=== PATIENT | female | born 1950 | race Caucasian/White ===

== ENCOUNTER → 2018-02-25 16:07 | Outpatient (CLI) | payer MEDICARE, SELFPAY ==
[2018-02-28 12:12] LABS: HPV Reflexed? NOT INDICATED
== END ==
PROVIDERS: Visit Provider Obstetrics & Gynecology
DX: Z12.4 Encounter for screening for malignant neoplasm of cervix (principal)
CPT/HCPCS: 88175; G0145

== ENCOUNTER → 2018-05-22 08:24 | Outpatient (CLI) | payer MEDICARE, SELFPAY ==
[2018-05-22 10:19] LABS: Anion Gap 8 (5-15); BUN 13 mg/dL (7-18); BUN/Creat Ratio 15.8 RATIO (10-20); Calcium,Total 9.1 mg/dL (8.5-10.1); Chloride 106 mmol/L (98-107); Creatinine, Serum 0.82 mg/dL (0.55-1.02); EST Glomerular Filtration Rate 74 mL/min (>60); Est Glom Filt Rate - Afr Amer 89 mL/min (>60); Glucose 115 mg/dL (74-106); Potassium 4.2 mmol/L (3.5-5.1); Sodium Level 142 mmol/L (136-145)
[2018-05-22 10:26] LABS: Hemoglobin A1c 6.5 % (4.2-6.3)
== END ==
PROVIDERS: Family Provider Family Medicine; PCP Family Medicine; Visit Provider Family Medicine
DX: I10 Essential (primary) hypertension (principal); R73.09 Other abnormal glucose
CPT/HCPCS: 36415; 80048; 83036

== ENCOUNTER → 2019-05-05 07:39 | Outpatient (CLI) | payer MEDICARE, SELFPAY ==
--- NOTE | 2019-05-05 07:51 | RAD_ITS ---
STUDY: X-RAY - RIGHT KNEE REASON FOR EXAM: Female, 68 years old. Palpable nodule. TECHNIQUE: 4 view(s) of the knee. COMPARISON: None. FINDINGS: Normal visualized distal femur. Normal visualized proximal tibia and fibula. Normal proximal tibiofibular articulation. There is mild degenerative arthrosis of the medial femorotibial compartment. Normal lateral femorotibial compartment. There is mild degenerative arthrosis of the patellofemoral articulation. The soft tissue structures are unremarkable. RAD/Knee 4 or More Views IMPRESSION: Degenerative arthrosis. Electronically Signed: Pete Grajeda, at 9:46 EDT , Service support ,
== END ==
PROVIDERS: Family Provider Family Medicine; PCP Family Medicine; Referring Provider Family Medicine; Visit Provider Family Medicine
DX: M70.51 Other bursitis of knee, right knee (principal)
CPT/HCPCS: 73564

== ENCOUNTER → 2019-05-11 09:19 | Outpatient (CLI) | payer MEDICARE, SELFPAY ==
[2019-05-11 12:17] LABS: Absolute Lymphocyte Count 1.52 X10^3/uL (0.83-4.51); Absolute Neutrophil Count 3.8 X10^3/uL (2.0-7.7); Basophil# 0.05 X10^3/uL; Basophil% 0.8 % (0-1); Eosinophil# 0.37 X10^3/uL; Hematocrit 39.9 % (37-47); Hemoglobin 13.2 g/dL (12.0-15.0); Lymphocyte # 1.52 X10^3/ul (4.0); Lymphocyte % 24.7 % (19-41); Mean Corp Hgb Conc 33.1 g/dL (32-36); Mean Corpuscular Hgb 30.5 pg (27.0-32.0); Mean Corpuscular Volume 92.1 fL (81-99); Mean Platelet Vol. 10.5 fl (6.2-12.0); Monocyte# 0.41 X10^3/uL; Monocyte% 6.7 % (0-10); NRBC Flagged by Analyzer 0 % (0-5); Neutrophil # 3.79 X10^3/uL (2.7-7.7); Neutrophil % 61.5 % (47-70); Platelet Count 244 K/mm3 (150-450); RBC Distribution Width CV 12.7 % (11.6-14.6); RBC Distribution Width SD 42.5 fl (35.1-43.9); Red Blood Count 4.33 M/mm3 (4.2-5.4); White Blood Count 6.2 K/mm3 (4.4-11.0)
[2019-05-11 12:43] LABS: Vitamin D,25 Hydroxy 31.8 ng/mL (29.95-100.01)
[2019-05-11 13:13] LABS: Anion Gap 9 (5-15); BUN 13 mg/dL (7-18); BUN/Creat Ratio 16.3 RATIO (10-20); Calcium,Total 8.9 mg/dL (8.5-10.1); Chloride 109 mmol/L (98-107); EST Glomerular Filtration Rate 77 mL/min (>60); Est Glom Filt Rate - Afr Amer 93 mL/min (>60); Glucose 117 mg/dL (74-106); Potassium 4.1 mmol/L (3.5-5.1); Sodium Level 142 mmol/L (136-145); Thyroid Stim Hormone (TSH) 1.25 uIU/mL (0.358-3.74)
[2019-05-11 13:17] LABS: Hemoglobin A1c 7.2 % (4.2-6.3)
== END ==
PROVIDERS: Family Provider Family Medicine; PCP Family Medicine; Referring Provider Family Medicine; Visit Provider Family Medicine
DX: E11.9 Type 2 diabetes mellitus without complications (principal); I10 Essential (primary) hypertension; L65.9 Nonscarring hair loss, unspecified
CPT/HCPCS: 36415; 80048; 82306; 83036; 84443; 85025

== ENCOUNTER → 2019-11-27 08:27 | Outpatient (CLI) | payer MEDICARE, SELFPAY ==
--- NOTE | 2019-11-27 08:42 | RAD_ITS ---
STUDY: X-RAY CHEST REASON FOR EXAM: Female, 69 years old. COUGH X 4 MONTHS TECHNIQUE: PA and lateral views of the chest. COMPARISON: 10/21/2012 FINDINGS: The lungs are clear and expanded. There is no demonstrated pleural abnormality. Normal size heart. Normal mediastinum and silverio. Normal visualized pulmonary arteries. Normal visualized aortic arch and descending thoracic aorta. Normal visualized thoracic spine. Normal visualized ribs, clavicles, and shoulders. There is no demonstrated abnormality of the visualized soft tissue structures of the upper abdomen. RAD/Chest PA and Lateral IMPRESSION: No acute pulmonary process Electronically Signed: Yefri Stephenson MD at 11:47 EST , Service support ,
== END ==
PROVIDERS: PCP Family Medicine; Referring Provider Family Medicine; Visit Provider Family Medicine
DX: R05 Cough (principal)
CPT/HCPCS: 71046

== ENCOUNTER → 2020-04-11 08:06 | Outpatient (CLI) | payer MEDICARE, SELFPAY ==
[2020-02-26 13:14] VITALS: BMI 34.0
[2020-04-11 10:16] LABS: ALB/GLOB Ratio 0.9 RATIO (0.9-2.4); AST(SGOT) 16 U/L (15-37); Alanine Aminotransfer ALT/SGPT 23 U/L (13-56); Albumin, Serum 3.6 g/dL (3.2-5.0); Alkaline Phosphatase 53 U/L (45-117); Anion Gap 7 (5-15); BUN 13 mg/dL (7-18); BUN/Creat Ratio 15.7 RATIO (10-20); Calcium,Total 9.2 mg/dL (8.5-10.1); Chloride 105 mmol/L (98-107); Cholesterol 121 mg/dL (200); Creatinine, Serum 0.83 mg/dL (0.55-1.02); EST Glomerular Filtration Rate 73 mL/min (>60); Est Glom Filt Rate - Afr Amer 88 mL/min (>60); Globulin 3.9 g/dL (2.2-4.2); Glucose 118 mg/dL (74-106); High Density Lipoprotein 27 mg/dL; Potassium 4.4 mmol/L (3.5-5.1); Protein, Total 7.5 g/dL (6.4-8.2); Sodium Level 140 mmol/L (136-145); Triglycerides 78 mg/dL; Very Low Density Lipoprotein 16 mg/dL (5-40)
[2020-04-11 10:19] LABS: Hemoglobin A1c 5.9 % (3.8-5.6)
== END ==
PROVIDERS: PCP Family Medicine; Referring Provider Family Medicine; Visit Provider Family Medicine
DX: I10 Essential (primary) hypertension (principal); E11.9 Type 2 diabetes mellitus without complications
CPT/HCPCS: 36415; 80053; 80061; 83036

== ENCOUNTER → 2020-04-26 13:51 | Outpatient (CLI) | payer MEDICARE, SELFPAY ==
[2020-02-26 13:14] VITALS: BMI 34.0
--- NOTE | 2020-04-26 14:02 | BD_ITS ---
STUDY: DUAL ENERGY X-RAY ABSORPTIOMETRY / DXA REASON FOR EXAM: Female, 69 years old. Age of margoth 56. Pat is 192.6# and 62 and quot; a loss of 1 and quot; per patient. Has a diuretic in BPM. Patient takes 750 mg of calcium (has not taken it in the last few months per pat). Exercises a little to moderatly. TECHNIQUE: Bone Mineral Density (BMD) measurements of lumbar spine and bilateral hips were obtained. COMPARISON: None. FINDINGS: Lumbar Spine (L1-L4): g/cm2 (1.209) / T-score (0.2) / Z-score (1.9) Findings are suggestive of normal bone density with a low fracture risk. Left Femur Total: g/cm2 (1.007) / T-score (0.0) / Z-score (1.3) Left Femoral Neck: g/cm2 (0.877) / T-score (-1.2) / Z-score (0.4) Right Femur Total: g/cm2 (0.972) / T-score (-0.3) / Z-score (1.0) Right Femoral Neck: g/cm2 (0.896) / T-score (-1.0) / Z-score (0.5) BD/Dexa Bone Density Study IMPRESSION: The patient is considered osteopenic as outlined below according to World Obi Organization (WHO) criteria with a low fracture risk. Reference Information: The T-score is the number of standard deviations above or below the standard which is normal for young adults at their peak bone mineral density. The World Health Organization (WHO) interprets the T-scores as follows: Above -1 Normal bone density Between -1 and -2.5 Osteopenia Equal to / or below -2.5 Osteoporosis As a practical clinical guideline, osteopenia may be graded as follows: Mild -1 through -1.5 Moderate -1.6 through -2.0 Severe -2.1 through -2.4 The Z-score is the number of standard deviations above or below age-matched controls. A Z-score of less than -1.5 would be considered abnormal. References: 1. NIH Osteoporosis and Related Bone Diseases http://www.osteo.org 2. International Society for Clinical Densitometry http://www.iscd.org 3. National Osteoporosis Foundation http://www.nof.org Electronically Signed: Pete Grajeda, at 15:35 EDT , Service support ,
== END ==
PROVIDERS: PCP Family Medicine; Referring Provider Family Medicine; Visit Provider Family Medicine
DX: Z78.0 Asymptomatic menopausal state (principal); M85.80 Other specified disorders of bone density and structure, unspecified site
CPT/HCPCS: 77080; 94799

== ENCOUNTER 2020-05-24 07:59 | Day surgery (SDC) | payer MEDICARE, SELFPAY ==
[2020-02-26 13:14] VITALS: BMI 34.0
[2020-05-24] VITALS (8 sets, daily range): BP systolic 90–133; BP diastolic 59–74; PULSE 55–69; RESP 16; TEMP 36.1–37.1; O2SAT 93–98; BMI 32.9
--- NOTE | 2020-05-24 | EGD_PTH ---
PATIENT: BARBARA CHOWDARY LOC: EN U#:[id number] AGE/SX: 69/F ROOM: RE05/24/[address]: Dr. Dandre Pearson MD : 1950 BED: DIS: 05/24/2020 SPEC #: [id number] RECD: 05/24/20 13:02 STATUS: BEBE MANAS #: [id number] IONA: 05/24/20 00:[address]: Dandre Pearson DEPT: SURGICAL PATHOLOGY RECD BY: Vito Beard ENTERED: 05/24/20 13:03 SP TYPE: EGD BIOPSY OT DR: Dr. Gal Lacey MD Tissues: A - Duodenum, NOS B - Gastric mucous membrane C - Esophagus, NOS Procedures: Special Stain Group II Surgery Specimen Level IV Alcian Blue/PAS (control) HEADER OPERATION: Colonoscopy, EGD ([facility]) PRE-OP DIAGNOSIS: GERD, family history colon CA TISSUE SUBMITTED: A - Duodenum biopsy, B - Antrum biopsy for histo and H. pylori, C - Distal esophagus biopsy MICROSCOPIC DIAGNOSIS A. Duodenum, biopsy: No pathologic change. B. Gastric antrum, biopsy: Chronic gastritis, mild to moderate. See comment. C. Distal esophagus, biopsy: Gastroesophageal junctional mucosa with mild chronic inflammation. No evidence of goblet cell metaplasia. See comment. AM:marley 05/25/20 COMMENT B. The results of immunohistochemistry for Helicobacter pylori will be reported separately ([id number]). C. Alcian blue/PAS stain with matched control supports the above diagnosis. MICROSCOPIC DESCRIPTION Slides are reviewed. GROSS DESCRIPTION A - Received in fixative is one container labeled with the patient's name and designated duodenum biopsy. The specimen consists of one irregular fragment of light hicks soft tissue that measures 0.3 x 0.3 x 0.1 cm. The specimen is totally submitted in one cassette. B - Received in fixative is one container labeled with the patient's name and designated antrum biopsy. The specimen consists of one irregular fragment of light hicks soft tissue that measures 0.6 x 0.2 x 0.1 cm. The specimen is totally submitted in one cassette. C - Received in fixative is one container labeled with the patient's name and designated distal esophagus biopsy. The specimen consists of one irregular fragment of light hicks soft tissue that measures 0.4 x 0.2 x 0.1 cm. The specimen is totally submitted in one cassette. / SJ:rg 05/24/20 TC:3 CPT: 00348 x3, 56568
[2020-05-24] MEDS: Lactated Ringers 1,000 ML 100 ML IV (08:27)
[2020-05-24 08:31] LABS: Bedside Glucose 100 mg/dL (70-110)
--- NOTE | 2020-05-24 09:00 | IMM_PTH ---
PATIENT: BARBARA CHOWDARY LOC: EN U#:[id number] AGE/SX: 69/F ROOM: RE05/24/[address]: Dr. Dandre Pearson MD : 1950 BED: DIS: 05/24/2020 SPEC #: [id number] RECD: 05/24/20 12:57 STATUS: [place]BE [place] #: [id number] IONA: 05/24/20 09:[address]: Dandre Pearson DEPT: IMMUNOHISTOCHEMISTRY RECD BY: Julianna Emerson ENTERED: 05/24/20 12:58 SP TYPE: IMMUNO OTHR DR: Dr. Gal Lacey MD Tissues: B - Stomach, NOS Procedures: H Pylori (initial) PHYSICIAN & INSTITUTION [place] [address] SPECIMEN INFORMATION: Tissue Source: B - Antrum biopsy Clinical Info: GERD Specimen Number: [id number] CPT code: 87391 METHODOLOGY: Deparaffinized sections of prefer/formalin-fixed tissue or PAP/DQ stained slides are incubated with monoclonal/polyclonal antibodies/oligonucleotide probes. Localization is made via biotin free immunoperoxidase method. Appropriate controls are performed and reacted as expected. Results on target cell population are indicated in the following table: RESULTS: ANTIBODY / CLONE RESULT Block B H Pylori (polyclonal) negative These tests were developed and their performance characteristics determined by [facility]. They may not have been cleared or approved by the U.S. Food and Drug Administration. The FDA has determined that such clearance or approval is not necessary. INTERPRETATION: B. Antrum, biopsy: Negative for Helicobacter pylori organisms. AM:marley 05/25/20
--- NOTE | 2020-05-24 09:25 | PCM.HP.STD ---
Problem List (1) Gastroesophageal reflux disease Status: Acute Qualifiers: Esophagitis presence: esophagitis presence not specified Qualified Code(s): K21.9 - Gastro-esophageal reflux disease without esophagitis (2) Family history of colon cancer in father Status: Acute History of Present Illness Date of Admission: 05/24/20 The patient is a 69 year old F who presents today for combined upper and lower endoscopy. She has intractable gastroesophageal reflux disease and has not had a previous upper endoscopy. She has a family history of colon cancer in her father.. Her most recent colonoscopy was April 2015. Currently she is asymptomatic from her colon. She has not noticed any bright red blood per rectum or melena. She does have constant heartburn. This requires omeprazole nightly. She was able to tolerate the bowel prep. Past Medical History Medical History: Medical History (Last Updated 02/26/20 @ 13:14 by Cris Bernal) Discharge from left nipple (Acute) N64.52 Anxiety F41.9 GERD (gastroesophageal reflux disease) K21.9 Nipple discharge N64.52 Osteoarthritis M19.90 HTN (hypertension) I10 Allergies lisinopril Adverse Reaction (Verified 05/24/20 08:21) cough Home Medications: Ambulatory Orders Medication Instructions Recorded sertraline 25 mg tablet 25 mg PO DAILY 12/10/19 losartan 50 mg tablet 50 mg PO DAILY 02/26/20 Cholecalciferol (VIT D3) [Vitamin 1,000 unit PO DAILY 05/18/20 D] Mv-Min/Vit C/Glut/Lysine/Hb124 1 ea PO DAILY 05/18/20 [Airborne Effervescent Tablet] Omeprazole [Prilosec] 20 mg PO QHS 05/18/20 Vitamin B Complex 1 ea PO DAILY 05/18/20 Surgical History: Surgical History (Last Reviewed 02/26/20 @ 13:13 by Cris Bernal) History of 3 sections Z98.891 History of section Z98.891 History of colonoscopy Onset Date: ~04/2015 Z98.890 History of esophagogastroduodenoscopy (EGD) Onset Date: ~04/2015 Z98.890 History of exploratory laparotomy Z98.890 History of right inguinal hernia repair Z98.890, Z87.19 Smoking Status: Never smoker Review of Systems Constitutional: Denies: Chills, Fever Cardiovascular: Denies: Chest Pain Respiratory: Denies: Cough, Shortness of Breath Gastrointestinal: Denies: Abdominal Pain Endocrine: Denies: Change in Body Habitus VTE Information - Inpt Only VTE Present on Admission: No Patient Problems: Active and Suspected Problems (Last Updated 02/26/20 @ 13:14 by Cris Bernal) Gastroesophageal reflux disease (Acute) Family history of colon cancer in father (Acute) - Physical Exam Vitals/I&O's: Vital Signs Temp Pulse Resp BP Pulse Ox 98.7 F 69 16 133/74 H 98 05/24/20 08:22 05/24/20 08:22 05/24/20 08:22 05/24/20 08:22 05/24/20 08:22 Oxygen Delivery Method Room Air Weight: 185 lb 13.595 oz Body Mass Index (BMI) 32.9 General: Alert, Oriented x3, Cooperative Oral: Moist Mucosa Neck: Supple Lungs: Clear to auscultation, Normal air movement Cardiovascular: Regular rate, Regular Rhythm Abdomen: Soft, Non Tender, Non-Distended Extremities: No Calf Tenderness Psych/Mental Status: Normal Affect Laboratory Results 05/24/20 08:20: POC Glucose 100 Current Medications Lactated Ringer's () 1,000 mls @ 100 mls/hr IV .Q10H JACOB Last Admin: 05/24/20 08:27 Dose: 100 mls/hr Documented by: Assessment/Plan All Active Problems (Last Updated 02/26/20 @ 13:14 by Cris Bernal) Gastroesophageal reflux disease (Acute) Family history of colon cancer in father (Acute) Discharge from left nipple (Acute) Plan to proceed today with a combined esophagogastroduodenoscopy with possible biopsy and colonoscopy with possible biopsy or polypectomy is indicated. She has had an opportunity to ask and have questions answered. As noted previous colonoscopy was April 2015. Family history of colon cancer. Intractable gastroesophageal reflux disease. She presents for an open access today. Dandre Pearson M.D., F.A.C.S. Procedure Criteria Procedure Type: Elective COVID Risk Discussion: The surgeon/proceduralist and patient have discussed in detail the risk of exposure to and/or potential harm posed by the COVID-19 virus with having a surgery/procedure at this time versus the risk of delaying the surgery/procedure. It is not possible to know either the risk of delaying the surgery or procedure or chance of getting an infection with perfect accuracy, but a joint decision was made between the patient and the surgeon/proceduralist to proceed at this time with the scheduled surgery/procedure as indicated on the consent form.
--- NOTE | 2020-05-24 10:12 | OP.CCLET_ITS ---
05/24/2020 Gal Lacey Md Re : Upper GI endoscopy procedure for Yesika Cason Dear Deepthi This procedure was performed on Sunday, May 24, 2020. My impressions and recommendations are as follows: Impressions : - Medium-sized hiatal hernia. - Z-line regular, 37 cm from the incisors. Biopsied distal esophagus - Chronic gastritis. Biopsied antrum. - Normal examined duodenum. Biopsied. Recommendations : - Discharge patient to home. - Resume previous diet. - Continue present medications. - Telephone my office for pathology results in 1 week. My findings are described in the full procedure note, which is enclosed. If I can be of further assistance, please feel free to contact me at Doctor phone number(s): Work: . Sincerely, Dandre Pearson MD 05/24/2020 10:11:55 AM This report has been signed electronically.
--- NOTE | 2020-05-24 10:12 | OP.EGD_ITS ---
Patient Name: Yesika Cason Procedure Date: 05/24/2020 9:29 AM Date of : 1950 Age: 69 Procedure: Upper GI endoscopy Indications: Suspected esophageal reflux Providers: Dandre Pearson MD Referring MD: Gal Lacey Md Medicines: See the Anesthesia note for documentation of the administered medications Complications: No immediate complications. Procedure: Pre-Anesthesia Assessment: - Prior to the procedure, a History and Physical was performed, and patient medications and allergies were reviewed. The patient's tolerance of previous anesthesia was also reviewed. The risks and benefits of the procedure and the sedation options and risks were discussed with the patient. All questions were answered, and informed consent was obtained. Prior Anticoagulants: The patient has taken no previous anticoagulant or antiplatelet agents. ASA Grade Assessment: III - A patient with severe systemic disease. After reviewing the risks and benefits, the patient was deemed in satisfactory condition to undergo the procedure. After obtaining informed consent, the endoscope was passed under direct vision. Throughout the procedure, the patient's blood pressure, pulse, and oxygen saturations were monitored continuously. The Endoscope was introduced through the mouth, and advanced to the second part of duodenum. The upper GI endoscopy was accomplished without difficulty. The patient tolerated the procedure well. Scope In: 9:40:29 AM Scope Out: 9:44:20 AM Total Procedure Duration Time 0 hours 3 minutes 51 seconds Findings: A medium-sized hiatal hernia was present. The Z-line was regular and was found 37 cm from the incisors. Biopsies were taken with a cold forceps for histology. Diffuse moderate inflammation characterized by erythema was found in the stomach. Biopsies were taken with a cold forceps for histology. The examined duodenum was normal. Biopsies were taken with a cold forceps for histology. Impression: - Medium-sized hiatal hernia. - Z-line regular, 37 cm from the incisors. Biopsied distal esophagus - Chronic gastritis. Biopsied antrum. - Normal examined duodenum. Biopsied. Recommendation: - Discharge patient to home. - Resume previous diet. - Continue present medications. - Telephone my office for pathology results in 1 week. Procedure Code(s): --- Professional --- 97192, Esophagogastroduodenoscopy, flexible, transoral; with biopsy, single or multiple Diagnosis Code(s): --- Professional --- K44.9, Diaphragmatic hernia without obstruction or gangrene K29.50, Unspecified chronic gastritis without bleeding CPT copyright 2017 [employer]. All rights reserved. The codes documented in this report are preliminary and upon sole leveler machine review may be revised to meet current compliance requirements. Dandre Pearson MD 05/24/2020 10:11:55 AM This report has been signed electronically. Number of Addenda: 0 Note Initiated On: 05/24/2020 9:29 AM
--- NOTE | 2020-05-24 10:15 | OP.CCLET_ITS ---
05/24/2020 Gal Lacey Md Re : Colonoscopy procedure for Yesika Cason Dear Deepthi This procedure was performed on Sunday, May 24, 2020. My impressions and recommendations are as follows: Impressions : - Hemorrhoids found on perianal exam. - Diverticulosis in the sigmoid colon. - Tortuous colon. - No specimens collected. Recommendations : - Discharge patient to home. - Resume previous diet. - Continue present medications. - Repeat colonoscopy in 5 years for surveillance. My findings are described in the full procedure note, which is enclosed. If I can be of further assistance, please feel free to contact me at Doctor phone number(s): Work: . Sincerely, Dandre Pearson MD 05/24/2020 10:14:48 AM This report has been signed electronically.
--- NOTE | 2020-05-24 10:15 | OP.COLON_ITS ---
Patient Name: Yesika Cason Procedure Date: 05/24/2020 9:45 AM Date of : 1950 Age: 69 Procedure: Colonoscopy Indications: Family history of colon cancer in a first-degree relative Providers: Dandre Pearson MD Referring MD: Gal Lacey Md Medicines: See the Anesthesia note for documentation of the administered medications Patient Profile: Last Colonoscopy: April 2015. Complications: No immediate complications. Procedure: Pre-Anesthesia Assessment: - Prior to the procedure, a History and Physical was performed, and patient medications and allergies were reviewed. The patient's tolerance of previous anesthesia was also reviewed. The risks and benefits of the procedure and the sedation options and risks were discussed with the patient. All questions were answered, and informed consent was obtained. Prior Anticoagulants: The patient has taken no previous anticoagulant or antiplatelet agents. ASA Grade Assessment: III - A patient with severe systemic disease. After reviewing the risks and benefits, the patient was deemed in satisfactory condition to undergo the procedure. After I obtained informed consent, the scope was passed under direct vision. Throughout the procedure, the patient's blood pressure, pulse, and oxygen saturations were monitored continuously. The colonoscope was introduced through the anus and advanced to the cecum, identified by appendiceal orifice and ileocecal valve. The colonoscopy was somewhat difficult due to a tortuous colon. Successful completion of the procedure was aided by applying abdominal pressure. The patient tolerated the procedure well. The quality of the bowel preparation was good. The ileocecal valve and the appendiceal orifice were photographed. Scope In: 9:47:21 AM Scope Withdrawal Time 0 hours 6 minutes 54 seconds Scope Out: 10:06:32 AM Total Procedure Duration Time 0 hours 19 minutes 11 seconds Findings: Hemorrhoids were found on perianal exam. A few diverticula were found in the sigmoid colon. The ascending colon was moderately tortuous. Advancing the scope required using manual pressure. Impression: - Hemorrhoids found on perianal exam. - Diverticulosis in the sigmoid colon. - Tortuous colon. - No specimens collected. Recommendation: - Discharge patient to home. - Resume previous diet. - Continue present medications. - Repeat colonoscopy in 5 years for surveillance. Procedure Code(s): --- Professional --- 41252, Colonoscopy, flexible; diagnostic, including collection of specimen(s) by brushing or washing, when performed (separate procedure) Diagnosis Code(s): --- Professional --- K64.9, Unspecified hemorrhoids Z80.0, Family history of malignant neoplasm of digestive organs K57.30, Diverticulosis of large intestine without perforation or abscess without bleeding Q43.8, Other specified congenital malformations of intestine CPT copyright 2017 [employer]. All rights reserved. The codes documented in this report are preliminary and upon s iron worker review may be revised to meet current compliance requirements. Dandre Pearson MD 05/24/2020 10:14:48 AM This report has been signed electronically. Number of Addenda: 0 Note Initiated On: 05/24/2020 9:45 AM
== END 2020-05-24 10:58 | disposition home or self-care (01) ==
LOC: EN 08:02 → AC 08:03
PROVIDERS: Anesthesiology; PCP Family Medicine; Referring Provider Family Medicine; Visit Provider Surgery
PROC: 0DJD8ZZ Inspection of Lower Intestinal Tract, Via Natural or Artificial Opening Endoscopic (ICD-10-PCS; CPT 45378; principal; 2020-05-24 08:55)
DX: K44.9 Diaphragmatic hernia without obstruction or gangrene (principal); K29.50 Unspecified chronic gastritis without bleeding; K57.30 Diverticulosis of large intestine without perforation or abscess without bleeding; Q43.8 Other specified congenital malformations of intestine; K64.9 Unspecified hemorrhoids; Z11.59 Encounter for screening for other viral diseases; I10 Essential (primary) hypertension; R73.03 Prediabetes; M19.90 Unspecified osteoarthritis, unspecified site; F41.9 Anxiety disorder, unspecified; Z78.0 Asymptomatic menopausal state; Z80.0 Family history of malignant neoplasm of digestive organs
CPT/HCPCS: 43239; 45378; 82962; 87635; 88305; 88313; 88342; 94799; J7120; U0003

== ENCOUNTER 2020-06-01 05:37 | Day surgery (SDC) | payer MEDICARE, SELFPAY ==
[2020-02-26 13:14] VITALS: BMI 34.0
[2020-05-26 08:16] VITALS: BMI 32.8
--- NOTE | 2020-05-26 09:05 | EKG12_ITS ---
Test Reason : PRE OP Blood Pressure : / mmHG Vent. Rate : 065 BPM Atrial Rate : 065 BPM P-R Int : 162 ms QRS Dur : 080 ms QT Int : 386 ms P-R-T Axes : 037 041 038 degrees QTc Int : 401 ms Normal sinus rhythm Normal ECG Confirmed by KASIA NDIAYE, ANASTACIA ([id number]), medical transcription editor REJI SALCIDO ([id number]) on 05/30/2020 9:31:46 AM Referred By: Dandre Pearson Confirmed By:MARCELA PEDROZA MD
[2020-05-26 09:25] LABS: Hematocrit 41.5 % (37-47); Hemoglobin 13.4 g/dL (12.0-15.0); Mean Corp Hgb Conc 32.3 g/dL (32-36); Mean Corpuscular Hgb 30.1 pg (27.0-32.0); Mean Corpuscular Volume 93.3 fL (81-99); Mean Platelet Vol. 10.2 fl (6.2-12.0); Platelet Count 239 K/mm3 (150-450); RBC Distribution Width CV 13.4 % (11.6-14.6); RBC Distribution Width SD 45.7 fl (35.1-43.9); Red Blood Count 4.45 M/mm3 (4.2-5.4); White Blood Count 7.1 K/mm3 (4.4-11.0)
[2020-05-26 09:48] LABS: Anion Gap 5 (5-15); BUN 14 mg/dL (7-18); BUN/Creat Ratio 15.3 RATIO (10-20); Chloride 105 mmol/L (98-107); Creatinine, Serum 0.92 mg/dL (0.55-1.02); EST Glomerular Filtration Rate 65 mL/min (>60); Est Glom Filt Rate - Afr Amer 78 mL/min (>60); Glucose 183 mg/dL (74-106); Potassium 4.2 mmol/L (3.5-5.1); Sodium Level 137 mmol/L (136-145)
[2020-06-01] VITALS (7 sets, daily range): BP systolic 87–134; BP diastolic 51–73; PULSE 50–70; RESP 14–16; TEMP 35.6–36.8; O2SAT 92–100; BMI 33.0
--- NOTE | 2020-06-01 05:49 | PCM.HP.BLA ---
Problem List (1) Umbilical hernia Status: Acute (2) Discharge from left nipple Status: Acute History and Physical Date of Admission: 06/01/20 Intake Visit Reasons: UPDATE H&P UMBILICAL HERNIA,L BREAST DUCTAL 06/01 Chief Complaint: umbilical hernia and breast surgery update Hand Cementer Required: No Is patient in pain?: No Allergies acetaminophen [From Darvocet-N] Allergy (Verified 05/26/20 08:16) Hives propoxyphene [From Darvocet-N] Allergy (Verified 05/26/20 08:16) Hives lisinopril Adverse Reaction (Verified 05/26/20 08:16) cough Medications sertraline 25 mg tablet 25 mg PO DAILY 12/10/19 [History Confirmed 05/26/20] losartan 50 mg tablet 50 mg PO DAILY 02/26/20 [History Confirmed 05/26/20] Cholecalciferol (VIT D3) [Vitamin D] 1,000 unit PO DAILY 05/18/20 [History Confirmed 05/26/20] Omeprazole [Prilosec] 20 mg PO QHS 05/18/20 [History Confirmed 05/26/20] Vitamin B Complex 1 ea PO DAILY 05/18/20 [History Confirmed 05/26/20] Multivit-Min/Vit C/Herb No.124 [Airborne Chewable Tablet] 1 ea PO DAILY 05/25/20 [History Confirmed 05/26/20] betamethasone dipropionate 0.05 % topical ointment 1 applic TOPICAL BID #45 g 05/26/20 [Rx Confirmed 05/26/20] [facility] Medical History Discharge from left nipple (Acute) Anxiety (Acute) GERD (gastroesophageal reflux disease) (Acute) Nipple discharge (Acute) Osteoarthritis (Acute) HTN (hypertension) (Chronic) Surgical History History of 3 sections (Acute) History of section (Acute) History of colonoscopy (Acute ~04/2015) History of esophagogastroduodenoscopy (EGD) (Acute ~04/2015) History of exploratory laparotomy (Acute) History of right inguinal hernia repair (Acute) Family History Mother Hypertension Father Colon cancer Sister Hypertension Breast cancer Brother Hypertension Cancer prostate Aunt Breast cancer Social History (Updated 05/26/20 @ 09:[address] Dandre Pearson MD) Smoking Status: Never smoker HPI HPI HPI: BARBARA CHOWDARY, is a 69 F who presents to the office today for ongoing surgical consultation regarding left nipple discharge and umbilical hernia. Unfortunately within the past week she has been exposed to some type of contact allergen causing a allergic rash to bilateral forearms. She was doing this while working in her garden. She has been applying some [id number] topical ointment with slight improvement. As noted below on May 24, 2020 she had a combined upper and lower endoscopy with the results below. These were additionally provided to her today. She notes that she is still having intermittent left nipple discharge. She is having some tenderness that extends lateral to the breast. On May 24, 2020 she had a combined esophagogastroduodenoscopy and colonoscopy. The upper endoscopy demonstrated a medium size hiatal hernia. There is some mild chronic gastritis. Mild chronic reflux irritation. H. pylori was negative. She is currently maintained on omeprazole therapy 20 mg nightly The colonoscopy demonstrated diverticulosis. A tortuous colon. Hemorrhoids. Follow-up exam consideration 5 years based upon first-degree family relative with colon cancer however the patient herself has had several colonoscopies done with pertinent findings. Intake Visit Reasons: LEFT BREAST DISCHARGE Chief Complaint: left breast discharge Hand Cementer Required: No Is patient in pain?: No Allergies lisinopril Adverse Reaction (Verified 02/26/20 13:16) cough Medications sertraline 25 mg tablet 25 mg PO DAILY 12/10/19 [History Confirmed 02/26/20] losartan 50 mg tablet 50 mg PO DAILY 02/26/20 [History Confirmed 02/26/20] Is last menstrual period known: No Post menopausal: Yes Patient : No PFSH Medical History (Updated 02/26/20 @ 15:[address] Dandre Perason MD) Discharge from left nipple (Acute) Anxiety (Acute) GERD (gastroesophageal reflux disease) (Acute) Nipple discharge (Acute) Osteoarthritis (Acute) HTN (hypertension) (Chronic) Surgical History History of 3 sections (Acute) History of section (Acute) History of colonoscopy (Acute ~04/2015) History of esophagogastroduodenoscopy (EGD) (Acute ~04/2015) History of exploratory laparotomy (Acute) History of right inguinal hernia repair (Acute) Family History (Updated 02/26/20 @ 13:15 by Cris Bernal) Mother Hypertension Father Colon cancer Sister Hypertension Breast cancer Brother Hypertension Cancer prostate Aunt Breast cancer Social History (Updated 02/26/20 @ 15:[address] Dandre Pearson MD) Smoking Status: Never smoker HPI HPI HPI: BARBARA CHOWDARY, is a 69 F who presents to the office today for surgical consultation regarding left nipple discharge. The patient is referred by Dr. Susannah Barajas and a written copy of my surgical consult recommendations will be returned to her. 69-year-old female. G4, . Menarche was at age 17. First child was born when she was 26. She did breast-feed. She has not had any previous breast biopsies. Family history however is notable for a sister who had breast cancer. The patient has not been on any hormone replacement therapy. She complains of a several week history of left nipple discharge. She states initially it was bloody but then more cream-colored. She states that she may have had a slight amount of discharge on the right but she is not stating that that is a consistent issue. At the [facility] on January 12, 2020 she had diagnostic bilateral mammograms. These were compared to mammograms September 16, 2019 and March 17, 2019 and March 02, 2019 and December 09, 2017. The report says negative. No significant masses calcifications or other findings. On January 12, 2020 at [facility] she had left breast ultrasound. There were a few stable appearing dilated retroareolar ducts. No sonographic evidence of malignancy. No abnormality seen to correspond with the left nipple discharge. Surgical consultation recommended. The patient states that she has not had bloody discharge from the left breast for a while. She describes it more as a cream-colored HPI HPI HPI: BARBARA CHOWDARY, is a 69 F who presents to the office today for ROS General General: No weight change, appetite, fatigue, colon cancer, breast cancer or weakness HEENT HEENT: No difficulty swallowing, eye injury, eye surgery, swollen glands or hoarseness Endo Endocrine: Yes diabetes mellitus; no thyroid disease, thyroid cancer, Hair loss, heat intolerance or cold intolerance Breast Breast: Yes nipple discharge; no left breast lump, right breast lump, breast pain, abnormal mammogram, abnormal US or breast enlargement Musc Musculoskeletal: Yes back problems; no arthritis, rheumatoid arthritis, gout or joint pain Cardio Cardiovascular: Yes high blood pressure; no murmur, pacemaker, heart disease, atrial fibrillation, heart attack, heart stent, palpitations, shortness of breat with exertion or chest pain Psych Psychiatric: Yes anxiety; no depression or hearing voices Resp Respiratory: No shortness of breath, No sleep apnea, No cough, No COPD, No asthma, No emphysema, No wheezing Gastro Gastrointestinal: No abdominal pain, No nausea or vomiting, No diarrhea, No constipation, No blood in stool, Yes acid reflux, No hemorrhoids, No ulcers, No gallbladder problem, No black,tarry stools Reynaldo Hematologic: No blood thinners, No blood disorders, No bleeding, No anemia, No blood clots Neuro Neurologic: No weakness HPI HPI HPI: BARBARA CHOWDARY, is a 69 F who presents to the office today for ROS General General: No weight change, appetite, fatigue, colon cancer, breast cancer or weakness HEENT HEENT: No difficulty swallowing, eye injury, eye surgery, swollen glands or hoarseness Endo Endocrine: Yes diabetes mellitus; no thyroid disease, thyroid cancer, Hair loss, heat intolerance or cold intolerance Breast Breast: Yes nipple discharge; no left breast lump, right breast lump, breast pain, abnormal mammogram, abnormal US or breast enlargement Musc Musculoskeletal: Yes back problems; no arthritis, rheumatoid arthritis, gout or joint pain Cardio Cardiovascular: Yes high blood pressure; no murmur, pacemaker, heart disease, atrial fibrillation, heart attack, heart stent, palpitations, shortness of breat with exertion or chest pain Psych Psychiatric: Yes anxiety; no depression or hearing voices Resp Respiratory: No shortness of breath, No sleep apnea, No cough, No COPD, No asthma, No emphysema, No wheezing Gastro Gastrointestinal: No abdominal pain, No nausea or vomiting, No diarrhea, No constipation, No blood in stool, Yes acid reflux, No hemorrhoids, No ulcers, No gallbladder problem, No black,tarry stools Reynaldo Hematologic: No blood thinners, No blood disorders, No bleeding, No anemia, No blood clots Neuro Neurologic: No weakness Exam Const General: cooperative, comfortable, no acute distress Nutritional Appearance: obese Orientation: alert, awake [facility] Head: normal to inspection Eyes General: appearance normal, both eyes and all related structures Chest Breast Palpation: Yes nipple discharge Other: Right breast: No focal mass, no nipple discharge no axillary or clavicular adenopathy Resp Effort & Inspection: normal respiratory effort Auscultation: clear to auscultation bilaterally Cardio Rate: regular rate Rhythm: regular rhythm Heart Sounds: no murmurs GI Palpation: soft Other: Slightly tender umbilical hernia, not reducible Extrem Other: Erythematous edematous bilateral forearm topical rash Psych Affect: normal affect Assessment & Plan Problems 1. Discharge from left nipple N64.52 2. Umbilical hernia K42.9 Plan I recommended the patient had ductal exploration left breast with excisional biopsy. I plan a periareolar incision. She is aware of the technique, benefit, risk of alternatives. She is complaining some tenderness laterally. Careful inspection in this direction will be pursued. Symptomatic umbilical hernia. I have proposed for her an umbilical herniorrhaphy with mesh. I discussed the technique, benefit, risk and alternatives. Contact dermatitis bilateral forearms. We will prescribe betamethasone cream. The patient is to instruct us if this does not improve prior to surgery. She has had an opportunity to ask and have questions answered. She is scheduled for surgical intervention. We will proceed as noted. Copy Dr. Gal Pearson M.D., F.A.C.S. Medications New: betamethasone dipropionate 0.05% 1 applic topical BID 45 grams 0RF Coding Level of Care Code Off vis,est,level 2 Diagnoses Discharge from left nipple N64.52 Umbilical hernia K42.9 I have re-examined the patient. There are no clinical changes since date of exam. Procedure Criteria Procedure Type: Elective COVID Risk Discussion: The surgeon/proceduralist and patient have discussed in detail the risk of exposure to and/or potential harm posed by the COVID-19 virus with having a surgery/procedure at this time versus the risk of delaying the surgery/procedure. It is not possible to know either the risk of delaying the surgery or procedure or chance of getting an infection with perfect accuracy, but a joint decision was made between the patient and the surgeon/proceduralist to proceed at this time with the scheduled surgery/procedure as indicated on the consent form.
--- NOTE | 2020-06-01 05:50 | DCINST_ITS ---
Discharge Diet: Light diet - advance as tolerated - if you have questions about your diet instructions, please talk to you doctor. Discharge Activity: May Not Drive - for 1 week or while taking narcotic pain medicine. May shower in (days): 1 Lifting Restrictions: 10 pounds Call your doctor if your incision/area has: Continuous Slow Oozing, Sudden Increased Bleeding, Increased Pain/ Swelling, Increased Redness, Foul Smelling Discharge Call your doctor if you observe: Fever of 101 or Higher Suture Line Care: Avoid Pulling/Pushing, Avoid Pinching/Bending Additional Dressing/Incision Instructions:: You may remove the bulky tape dressing from the breast. There should be plastic dressings both at the breast and umbilical site. You may shower over those. Remove those if any moisture leaks underneath. You may remove those in 3 days and then leave any Steri- Strips or surgical glue on for 1 additional week Allergies/Adverse Reactions: Allergies acetaminophen [From Darvocet-N] Allergy (Verified 05/26/20 08:16) Hives propoxyphene [From Darvocet-N] Allergy (Verified 05/26/20 08:16) Hives lisinopril Adverse Reaction (Verified 05/26/20 08:16) cough Medications to take at Discharge sertraline 25 mg tablet 25 mg PO DAILY 12/10/19 losartan 50 mg tablet 50 mg PO DAILY 02/26/20 Cholecalciferol (VIT D3) [Vitamin D] 1,000 unit PO DAILY 05/18/20 Omeprazole [Prilosec] 20 mg PO QHS 05/18/20 Vitamin B Complex 1 ea PO DAILY 05/18/20 Multivit-Min/Vit C/Herb No.124 [Airborne Chewable Tablet] 1 ea PO DAILY 05/25/20 betamethasone dipropionate 0.05 % topical ointment 1 applic TOPICAL BID #45 g 05/26/20 Primary Care Physician: Gal Lacey MD [Primary Care Provider] - Test Results: Test results from this visit will be discussed in further detail at your follow- up appointment, if applicable. Please Follow Up With: Dandre Pearson MD - [phone] When: Call to make an appointment to be seen in about 10 days.
[2020-06-01] MEDS: Lactated Ringers 1,000 ML 100 ML IV ×2 (06:49→08:57)
[2020-06-01] MEDS: Cefazolin 2 GM in 0.9% Normal Saline 100 ML IV (07:25)
--- NOTE | 2020-06-01 07:30 | HERN_PTH ---
PATIENT: BARBARA CHOWDARY LOC: [facility] U#:[id number] AGE/SX: 69/F ROOM: RE06/01/[address]: Dr. Dandre Pearson MD : 1950 BED: DIS: 06/01/2020 SPEC #: [id number] RECD: 06/01/20 09:18 STATUS: BEBE MANAS #: [id number] IONA: 06/01/20 07:[address]: Dandre Pearson DEPT: SURGICAL PATHOLOGY RECD BY: Ryan King ENTERED: 06/01/20 09:30 SP TYPE: Hernia OTHR DR: Dr. Gal Lacey MD Tissues: A - HERNIA B - Left breast, NOS Procedures: Surgery Specimen Level II Surgery Specimen Level V HEADER OPERATION: Umbilical hernia repair with mesh; left breast ductal PRE-OP DIAGNOSIS: Left nipple discharge; Umbilical hernia TISSUE SUBMITTED: A - Incarcerated umbilical hernia and contents, B - Left ductal breast tissue MICROSCOPIC DIAGNOSIS A. Incarcerated umbilical hernia and contents: Mesothelial-lined fibroadipose and fibroconnective tissue, consistent with hernia sac. B. Left breast ductal tissue, excisional biopsy: Intraductal papilloma, multifocal (0.4 cm in greatest dimension). Focal ductal dilatation. Fibrocystic changes and intraductal hyperplasia without atypia. Focal microcalcification. Negative for malignancy. SJ:marley 06/06/20 MICROSCOPIC DESCRIPTION Slides are reviewed. GROSS DESCRIPTION A - Received in fixative is one container labeled with the patient's name and designated incarcerated umbilical hernia and contents. The specimen consists of a piece of yellow adipose tissue measuring 5 x 3 x 2 cm. A piece of fibroadipose tissue is also noted measuring 2 x 1.5 x 0.5 cm. Sections reveal no mass lesion. Drain Layer sections are submitted in one cassette. / SUBHASH:marley 06/01/20 B - Received in fixative is one container labeled with the patient's name and designated left ductal breast tissue. The specimen consists of a piece of fibroadipose tissue measuring 4.5 x 4.5 x 2 cm. The specimen is not oriented. The specimen is inked, serially sectioned and reveal hicks-yellow adipose cut surfaces with focal fibrous area. No well-defined mass lesion is identified. The entire specimen is submitted in ten cassettes from one end to another end. Sections will be submitted after additional fixation. / SUBHASH:marley 06/02/20 TC:1 CPT: 13795, 94726
[2020-06-01] MEDS: Bupivacaine Mpf 0.5% 30 ML VIAL (08:24)
--- NOTE | 2020-06-01 08:29 | PCM.OPRPT ---
Problem List (1) Discharge from left nipple Status: Acute (2) Incarcerated umbilical hernia Status: Acute Report of Operation Date of Procedure: 06/01/20 Pre-Operative Diagnosis: Left breast nipple discharge, umbilical hernia Post-Operative Diagnosis: Left breast nipple discharge, incarcerated umbilical hernia Surgery/Procedure Performed:: Umbilical herniorrhaphy with 6.4 cm ventral Hossein mesh. Lot: [id number], reference #[id number], expiry date 09/17/2021. Ductal exploration with excisional biopsy left retroareolar breast Description of Surgical Findings:: Timeout and informed consent was obtained. 69-year-old female was taken the operating placement table underwent general endotracheal intubation esthesia. Ancef 2 g were given intravenously. The abdomen and left breast were sterilely prepped and draped. A curvilinear incision was made at the inferior portion of the umbilicus. Sharp dissection carried down through the subcutaneous tissue. The umbilical hernia identified it was circumferentially dissected free the sac was then opened to identify incarcerated omentum within. A portion of omentum was dissected free and submitted with the specimen. The retrorectus space was opened. A 6.4 cm diameter ventral X mesh was inserted. The tails were secured with 0 Nurolon. The fascia was approximated transversely with the same. Skin edges approximated opted for Monocryl subdermal stitches. Dermabond applied followed by cotton ball Telfa OpSite dressing. Attention was drawn to the left breast. A lacrimal duct probe was placed centrally at the site of nipple discharge. A curvilinear incision was made the lateral aspect of the left areola. Sharp dissection performed immediately in the retroareolar plane. Tissue was then excised in a cylindrical fashion guided by the lacrimal duct probe. Hemostasis was obtained with electrocautery. The specimen was submitted in formalin. The wound was closed with interrupted 4-0 Monocryl subdermal stitches. Steri-Strips Telfa OpSite bulky dry dressings applied. It is of note that both wound sites were anesthetized with 0.5% Marcaine and that a total of 30 cc was used throughout the entire procedure. Specimen incarcerated umbilical hernia sac and contents. Left breast retroareolar tissue. Drains none. Blood loss none. The patient was taken to the recovery area in satisfactory condition without apparent complication Dandre Pearson M.D., F.A.C.S. Type of Anesthesia:: General Anesthesiologist: Rashad Smith
[2020-06-01] MEDS: oxyCODONE 5 MG Tablet PO (10:41)
== END 2020-06-01 11:22 | disposition home or self-care (01) ==
LOC: SDC 05:41 → AC 05:41
PROVIDERS: PCP Family Medicine; Referring Provider Surgery; Visit Provider Surgery
PROC: (CPT 19120; principal; 2020-06-01 07:15)
DX: K42.0 Umbilical hernia with obstruction, without gangrene (principal); D24.2 Benign neoplasm of left breast; N60.12 Diffuse cystic mastopathy of left breast; N62 Hypertrophy of breast; N64.52 Nipple discharge; I10 Essential (primary) hypertension; M19.90 Unspecified osteoarthritis, unspecified site; K21.9 Gastro-esophageal reflux disease without esophagitis; F41.9 Anxiety disorder, unspecified; L25.9 Unspecified contact dermatitis, unspecified cause; Z78.0 Asymptomatic menopausal state; Z79.899 Other long term (current) drug therapy
CPT/HCPCS: 19120; 49587; 36415; 80048; 85027; 88302; 88305; 88307; 93005; 94799; C1781; J7120; J2405

== ENCOUNTER → 2021-06-14 07:46 | Outpatient (CLI) | payer MEDICARE, SELFPAY ==
[2020-06-01 06:36] VITALS: BMI 33.0
--- NOTE | 2021-06-14 08:19 | BI_ITS ---
MAMMOGRAPHY - BILATERAL SCREENING REASON FOR EXAM: Female, 70 years old. Routine annual screening examination. PERTINENT HISTORY: Sister with breast cancer. Aunt with breast cancer. Left excisional breast biopsy for papilloma. TECHNIQUE: Digital bilateral breast lucrecia (3D mammographic acquisition) in the CC and MLO projections. 2-D mediolateral oblique (MLO) and craniocaudad (CC) views of both breasts were obtained. CAD: Full Field Digital Mammography with Computer Added Detection was performed. COMPARISON: Comparison is made with prior outside examination dated 03/02/2019. FINDINGS: Breast Composition: There are scattered areas of fibroglandular density. There are no dominant masses or suspicious calcifications. Stable benign-appearing bilateral axillary lymph nodes. No other significant abnormalities are identified. There has been no significant change since the prior study. BI/SCRN MAMM (CAD)W/LUCRECIA BILAT IMPRESSION: Stable bilateral screening mammogram. Yearly follow-up mammogram recommended. (A) ASSESSMENT CATEGORY: BIRADS Category 2: Benign. A letter regarding these results will be sent to the patient by the facility within 30 days. Approximately 10% of breast cancers are not detected by mammography. A normal mammogram should not delay biopsy of a clinically suspicious abnormality. [id number] Electronically Signed: Pete Grajeda MD at 8:17 EDT , Service support ,
== END ==
PROVIDERS: PCP Family Medicine; Referring Provider Surgery; Visit Provider Surgery
DX: Z12.31 Encounter for screening mammogram for malignant neoplasm of breast (principal)
CPT/HCPCS: 77063; 77067

== ENCOUNTER → 2021-06-23 07:55 | Outpatient (CLI) | payer MEDICARE, SELFPAY ==
[2021-06-23 10:23] LABS: Absolute Lymphocyte Count 1.37 X10^3/uL (0.83-4.51); Absolute Neutrophil Count 4.2 X10^3/uL (2.0-7.7); Basophil# 0.07 X10^3/uL; Basophil% 1.1 % (0-1); Eosinophil# 0.37 X10^3/uL; Eosinophils% 5.6 % (0-5); Hematocrit 41.1 % (37-47); Hemoglobin 13.6 g/dL (12.0-15.0); Lymphocyte # 1.37 X10^3/ul (0.83-4.51); Lymphocyte % 20.9 % (19-41); Mean Corp Hgb Conc 33.1 g/dL (32-36); Mean Corpuscular Hgb 30.4 pg (27.0-32.0); Mean Corpuscular Volume 91.9 fL (81-99); Mean Platelet Vol. 10.6 fl (6.2-12.0); Monocyte# 0.53 X10^3/uL; Monocyte% 8.1 % (0-10); NRBC Flagged by Analyzer 0 % (0-5); Neutrophil % 63.8 % (47-70); Platelet Count 242 K/mm3 (150-450); RBC Distribution Width CV 12.7 % (11.6-14.6); RBC Distribution Width SD 42.6 fl (35.1-43.9); Red Blood Count 4.47 M/mm3 (4.2-5.4); White Blood Count 6.6 K/mm3 (4.4-11.0)
[2021-06-23 10:44] LABS: AST(SGOT) 17 U/L (15-37); Alanine Aminotransfer ALT/SGPT 26 U/L (13-56); Albumin, Serum 3.7 g/dL (3.2-5.0); Alkaline Phosphatase 44 U/L (45-117); Anion Gap 8 (5-15); BUN 13 mg/dL (7-18); BUN/Creat Ratio 18.5 RATIO (10-20); Calcium,Total 8.8 mg/dL (8.5-10.1); Chloride 106 mmol/L (98-107); Cholesterol 150 mg/dL (200); EST Glomerular Filtration Rate 88 mL/min (>60); Est Glom Filt Rate - Afr Amer 106 mL/min (>60); Globulin 3.6 g/dL (2.2-4.2); Glucose 135 mg/dL (74-106); High Density Lipoprotein 31 mg/dL; Potassium 4.2 mmol/L (3.5-5.1); Protein, Total 7.3 g/dL (6.4-8.2); Sodium Level 139 mmol/L (136-145); Triglycerides 108 mg/dL; Very Low Density Lipoprotein 22 mg/dL (5-40)
[2021-06-23 11:01] LABS: Hemoglobin A1c 6.6 % (3.8-5.6)
== END ==
PROVIDERS: PCP Family Medicine; Referring Provider Family Medicine; Visit Provider Family Medicine
DX: I10 Essential (primary) hypertension (principal); E11.9 Type 2 diabetes mellitus without complications
CPT/HCPCS: 36415; 80053; 80061; 83036; 85025

== ENCOUNTER → 2021-09-27 11:18 | Outpatient (CLI) | payer MEDICARE, SELFPAY ==
--- NOTE | 2021-09-27 11:22 | RAD_ITS ---
STUDY: X-RAY - PELVIS AND BILATERAL HIP REASON FOR EXAM: Female, 70 years old. Technologist Notes bilateral hip pain x 5 weeks TECHNIQUE: XR Hips Bilateral with Pelvis when performed; 2 Views COMPARISON: None. FINDINGS: There is a non-specific bowel gas pattern. Normal visualized soft tissue structures. Degenerative findings of the lumbar spine. Normal bilateral iliac wings, sacroiliac joints and visualized sacrum. Normal bilateral superior and inferior pubic rami. Normal pubic symphysis. Normal bilateral ischial tuberosities. There are osteoarthritic changes of the femoral head with marginal osteophyte formation. There is cortical sclerosis with sub-cortical cyst formation of the acetabulum. There is mild articular joint space narrowing of the hip. RAD/Hips B/L min 2 views w/ Pelvis IMPRESSION: Degenerative findings of the hips. Electronically Signed: Alec Lopez MD at 16:00 EST , Service support ,
== END ==
PROVIDERS: PCP Family Medicine; Referring Provider Family Medicine; Visit Provider Family Medicine
DX: M25.551 Pain in right hip (principal); M25.552 Pain in left hip
CPT/HCPCS: 73521

== ENCOUNTER → 2021-10-11 08:19 | Outpatient (CLI) | payer MEDICARE, SELFPAY ==
--- NOTE | 2021-10-11 08:30 | RAD_ITS ---
PROCEDURE: Fluoroscopic guided Hip Injection DATE: 10/11/2021. INDICATION: Female, 70 years old. Chronic right hip pain. PHYSICIAN: Pete Grajeda M.D. MEDICATIONS: 40 mg of KENALOG and 4 cc of 1% LIDOCAINE. 2% Lidocaine administered subcutaneously for local anesthesia. ACCESS SITE: Right hip. NEEDLE: 22-gauge spinal needle. FLUOROSCOPY TIME (if supplied): (0:24) minutes/seconds. One image was obtained. FINDINGS: The risks, benefits, and alternatives to the procedure were explained to the patient. The specific risks of bleeding, infection, and neurovascular injury were detailed and accepted. Witnessed informed consent was obtained. A 22-gauge spinal needle was positioned under radiographic fluoroscopic localization. Approximately 2 cc of [id number] was instilled for localization purposes. Medication was then injected. The patient tolerated the procedure well without any immediate complications. RAD/Inj/Asp Celestine Jt Should/Hip/Knee IMPRESSION: 1. Successful fluoroscopic guided hip injection. Electronically Signed: Pete Grajeda MD at 9:35 EST , Service support ,
== END ==
PROVIDERS: PCP Family Medicine; Referring Provider Family Medicine; Visit Provider Family Medicine
DX: M16.11 Unilateral primary osteoarthritis, right hip (principal); G89.29 Other chronic pain
CPT/HCPCS: 20610; 77002; Q9965

== ENCOUNTER 2021-10-31 13:48 | Outpatient (CLI) | payer MEDICARE, SELFPAY ==
--- NOTE | 2021-10-31 | EMB_PTH ---
PATIENT: BARBARA CHOWDARY LOC: [facility] U#:[id number] AGE/SX: 71/F ROOM: RE10/31/[address]: Dr. Susannah Barajas MD : 1950 BED: DIS: 10/31/2021 SPEC #: [id number] RECD: 10/31/21 13:55 STATUS: [place]BE [place] #: [id number] IONA: 10/31/21 00:[address]: Susannah Robert DEPT: SURGICAL PATHOLOGY RECD BY: Lesly Galvan ENTERED: 11/01/21 09:25 SP TYPE: ENDOM BX/C JUMANA DR: Dr. Gal Ballesteros MD Tissues: Endometrium, NOS Procedures: Surgery Specimen Level IV HEADER OPERATION: Endometrial biopsy PRE-OP DIAGNOSIS: Postmenopausal bleeding TISSUE SUBMITTED: Endometrial biopsy MICROSCOPIC DIAGNOSIS Endometrial biopsy: Inactive endometrium with focal cystic changes, blood and mucous. SJ:marley 11/02/2021 MICROSCOPIC DESCRIPTION Slides are reviewed. GROSS DESCRIPTION Received in fixative is one container labeled with the patient's name and designated EMB. The specimen consists of multiple fragments of pink hemorrhagic soft tissue that in aggregate measure 2 x 2 x 0.1 cm. The specimen is totally submitted in one cassette. / SJ:rg 11/01/2021 TC:5 CPT: 56654
== END 2021-10-31 23:59 | disposition short-term general hospital (02) ==
LOC: LABSPEC 13:49
PROVIDERS: PCP Family Medicine; Visit Provider Obstetrics & Gynecology
DX: N95.0 Postmenopausal bleeding (principal)
CPT/HCPCS: 88305

== ENCOUNTER 2021-11-01 07:56 | Outpatient (CLI) | payer MEDICARE, SELFPAY ==
--- NOTE | 2021-11-01 08:01 | MRI_ITS ---
STUDY: MRI RIGHT HIP REASON FOR EXAM: Right hip pain for several years. TECHNIQUE: Standardized fat and water weighted pulse sequences were obtained in all 3 orthogonal planes. COMPARISON: Radiographs 09/27/2021. FINDINGS: There is right hip arthrosis with chondral thinning and subchondral cystic change/bone edema of the acetabulum (proton-density sagittal images 14-17). Normal labrum. There is a small subchondral stress fracture of the right femoral head (proton-density sagittal image 14; inversion recovery coronal image 15) with associated bone edema. Normal femoral neck and intratrochanteric region. Normal gluteus minimus, medius and iliopsoas tendons and distal insertions. There is no trochanteric, iliopsoas or iliopectineal bursitis. Normal superior and inferior pubic rami. Normal pubic symphysis. Normal ischial tuberosity. Normal origin of the hamstring tendons. Normal visualized iliac wing, sacroiliac joint, and sacral ala. Normal visualized soft tissue structures of the pelvis. MRI/Lower Ext Joint Only (Routine) IMPRESSION: Small subchondral stress fracture of the right femoral head. Right hip arthrosis. Electronically Signed: Reji Maxwell MD at 9:20 EST Tel , Service support ,
== END 2021-11-01 23:59 | disposition short-term general hospital (02) ==
LOC: MRI 08:01
PROVIDERS: PCP Family Medicine; Referring Provider Orthopaedic Surgery; Visit Provider Orthopaedic Surgery
DX: M16.11 Unilateral primary osteoarthritis, right hip (principal)
CPT/HCPCS: 73721

== ENCOUNTER 2021-11-16 13:45 | Outpatient (CLI) | payer MEDICARE, SELFPAY ==
--- NOTE | 2021-11-16 13:53 | VDLE_ITS ---
Reason For Study: calf pain RIGHT GSV is normal. CFV is compressible, spontaneous, phasic, competent and demonstrates normal augmentation. FV is compressible, spontaneous, phasic, competent and demonstrates normal augmentation. POP V is compressible, spontaneous, phasic, competent and demonstrates normal augmentation. T/P Trunk is compressible. PTV is compressible. RT PerV is compressible. SSV is dilated and noncompressible. Varicose veins from the distal thigh to calf are dilated and noncompressible. Procedure This is a venous duplex using B-mode, color flow and spectral Doppler. Exam performed in department. The exam was abbreviated due to the COVID 19 protocol. The exam was diagnostic. A preliminary report was called and/or faxed to [facility]. VL/Venous Duplex US, Unilateral Interpretation Summary There is no evidence of right lower extremity deep vein thrombosis. Right great saphenous vein appears patent and compressible segmentally. Superficial thrombophlebitis right small saphenous vein and varicosities distal thigh to the calf. Abbreviated COVID-19 protocol utilized Ordering Physician: Cosme Carr Performed By: Joseph Rider RVT
== END 2021-11-16 23:59 | disposition short-term general hospital (02) ==
LOC: CVS 13:46
PROVIDERS: PCP Family Medicine; Referring Provider Physician Assistant; Visit Provider Physician Assistant
DX: M79.661 Pain in right lower leg (principal)
CPT/HCPCS: 93971

== ENCOUNTER 2022-01-11 08:59 | Outpatient (CLI) | payer MEDICARE, SELFPAY ==
[2022-01-11 09:09] LABS: Bacteria 0 SEEN /hpf (None Seen); Mucous, Urine 0 SEEN /hpf (<or=2+); Red Blood Cells-Urine 0 SEEN /hpf (0-5)
[2022-01-11 10:22] LABS: Color, Urine Yellow (Yellow); Glucose, Dipstick Normal (Normal); Ketone-Dipstick 5 mg/dl (Negative); Leukocyte Esterase-Dipstick 500 /ul (Negative); Nitrite-Dipstick Negative (Negative); Occult Blood-Urine 10 /ul (Negative); Protein-Dipstick Negative (Negative); Urine Bilirubin Dipstick Negative (Negative); Urine Clarity Sl. Cloudy (Clear); Urine Urobilinogen Normal (Normal)
[2022-01-11 10:28] LABS: Absolute Lymphocyte Count 1.53 X10^3/uL (0.83-4.51); Absolute Neutrophil Count 3.7 X10^3/uL (2.0-7.7); Basophil# 0.07 X10^3/uL; Basophil% 1.1 % (0-1); Eosinophil# 0.39 X10^3/uL; Eosinophils% 6.1 % (0-5); Hematocrit 41.3 % (37-47); Lymphocyte # 1.53 X10^3/ul (0.83-4.51); Lymphocyte % 23.8 % (19-41); Mean Corp Hgb Conc 33.9 g/dL (32-36); Mean Corpuscular Hgb 31.3 pg (27.0-32.0); Mean Corpuscular Volume 92.2 fL (81-99); Mean Platelet Vol. 10.4 fl (6.2-12.0); Monocyte# 0.62 X10^3/uL; Monocyte% 9.7 % (0-10); NRBC Flagged by Analyzer 0 % (0-5); Neutrophil # 3.74 X10^3/uL (2.7-7.7); Neutrophil % 58.2 % (47-70); Platelet Count 246 K/mm3 (150-450); RBC Distribution Width CV 12.8 % (11.6-14.6); RBC Distribution Width SD 43.4 fl (35.1-43.9); Red Blood Count 4.48 M/mm3 (4.2-5.4); White Blood Count 6.4 K/mm3 (4.4-11.0)
[2022-01-11 10:31] LABS: Squamous Epithelial Cells - UA 5-10 SEEN /hpf (5-10); White Blood Cells 5-10 SEEN /hpf (0-5)
[2022-01-11 10:52] LABS: Hemoglobin A1c 7.1 % (3.8-5.6)
[2022-01-11 11:03] LABS: ALB/GLOB Ratio 0.9 RATIO (0.9-2.4); AST(SGOT) 19 U/L (15-37); Alanine Aminotransfer ALT/SGPT 27 U/L (13-56); Albumin, Serum 3.5 g/dL (3.2-5.0); Alkaline Phosphatase 48 U/L (45-117); Anion Gap 7 (5-15); BUN 13 mg/dL (7-18); Calcium,Total 9.5 mg/dL (8.5-10.1); Chloride 106 mmol/L (98-107); Cholesterol 144 mg/dL (200); Creatinine, Serum 0.87 mg/dL (0.55-1.02); EST Glomerular Filtration Rate 69 mL/min (>60); Est Glom Filt Rate - Afr Amer 83 mL/min (>60); Globulin 3.9 g/dL (2.2-4.2); Glucose 159 mg/dL (74-106); High Density Lipoprotein 29 mg/dL; Potassium 4.2 mmol/L (3.5-5.1); Protein, Total 7.4 g/dL (6.4-8.2); Sodium Level 137 mmol/L (136-145); Thyroid Stim Hormone (TSH) 1.16 uIU/mL (0.358-3.74); Triglycerides 147 mg/dL; Very Low Density Lipoprotein 29 mg/dL (5-40)
[2022-01-11 11:10] LABS: Microalbumin,Random Urine 15.4 mg/L (NO RANGE EST.); Microalbumin:Creatinine Ratio 7.8 mg/g CRE (<30 mg/g CRE)
[2022-01-11 11:44] LABS: Vitamin D,25 Hydroxy 26.4 ng/mL
== END 2022-01-11 23:59 | disposition home or self-care (01) ==
LOC: MFPLAB 09:03
PROVIDERS: PCP Family Medicine; Referring Provider Family Medicine; Visit Provider Family Medicine
DX: I10 Essential (primary) hypertension (principal); E11.9 Type 2 diabetes mellitus without complications; M85.80 Other specified disorders of bone density and structure, unspecified site
CPT/HCPCS: 36415; 80053; 80061; 81001; 82043; 82306; 82570; 83036; 84443; 85025

== ENCOUNTER → 2022-03-14 | Outpatient (CLI) | payer MEDICARE, SELFPAY ==
--- NOTE | 2022-03-14 07:14 | CT_ITS ---
STUDY: CT BILATERAL LOWER EXTREMITIES WITHOUT CONTRAST REASON FOR EXAM: Right hip osteoarthritis, surgical planning. TECHNIQUE: Transaxial CT imaging of the lower extremities was performed. Sagittal and coronal images were reconstructed. Individualized dose optimization techniques were used for this CT. COMPARISON: Radiographs 01/26/2022. FINDINGS: Hips: There is right hip joint space loss and subchondral cystic change of the right acetabulum (coronal reconstructions 68-76). There is preservation of joint space of the left hip. Knees: There is joint space narrowing of the medial femorotibial compartments bilaterally (coronal reconstructions 34-42). There is mild joint space narrowing of the lateral aspect of the patellofemoral articulations bilaterally (axial image 586). CT/Extremity Lower without Contra IMPRESSION: Right hip osteoarthritis. Electronically Signed: Reji Maxwell MD at 15:00 EDT ,
== END | disposition home or self-care (01) ==
LOC: CT 07:13
PROVIDERS: PCP Family Medicine; Visit Provider Physician Assistant
DX: M16.11 Unilateral primary osteoarthritis, right hip (principal)
CPT/HCPCS: 73700

== ENCOUNTER → 2022-03-16 | Outpatient (CLI) | payer MEDICARE, SELFPAY ==
[2022-03-16 17:40] LABS: Absolute Lymphocyte Count 1.61 X10^3/uL (0.83-4.51); Absolute Neutrophil Count 5.3 X10^3/uL (2.0-7.7); Basophil# 0.08 X10^3/uL; Eosinophil# 0.38 X10^3/uL; Eosinophils% 4.8 % (0-5); Hematocrit 40.3 % (37-47); Hemoglobin 13.5 g/dL (12.0-15.0); Lymphocyte # 1.61 X10^3/ul (0.83-4.51); Lymphocyte % 20.2 % (19-41); Mean Corp Hgb Conc 33.5 g/dL (32-36); Mean Corpuscular Hgb 30.7 pg (27.0-32.0); Mean Corpuscular Volume 91.6 fL (81-99); Mean Platelet Vol. 10.4 fl (6.2-12.0); Monocyte# 0.59 X10^3/uL; Monocyte% 7.4 % (0-10); NRBC Flagged by Analyzer 0 % (0-5); Neutrophil # 5.26 X10^3/uL (2.7-7.7); Neutrophil % 66.1 % (47-70); Platelet Count 276 K/mm3 (150-450); RBC Distribution Width SD 43.9 fl (35.1-43.9)
[2022-03-16 18:08] LABS: Color, Urine Yellow (Yellow); Glucose, Dipstick Normal (Normal); Ketone-Dipstick Negative (Negative); Leukocyte Esterase-Dipstick 500 /ul (Negative); Nitrite-Dipstick Negative (Negative); Occult Blood-Urine 10 /ul (Negative); Protein-Dipstick 15 mg/dl (Negative); Specific Gravity, Urine 1.025 (1.002-1.030); Urine Bilirubin Dipstick Negative (Negative); Urine Clarity Sl. Cloudy (Clear); Urine Urobilinogen Normal (Normal)
[2022-03-16 18:17] LABS: Hemoglobin A1c 6.7 % (3.8-5.6)
[2022-03-16 18:21] LABS: AST(SGOT) 19 U/L (15-37); Alanine Aminotransfer ALT/SGPT 30 U/L (13-56); Albumin, Serum 3.8 g/dL (3.2-5.0); Alkaline Phosphatase 52 U/L (45-117); Anion Gap 7 (5-15); BUN 18 mg/dL (7-18); BUN/Creat Ratio 18.2 RATIO (10-20); Calcium,Total 9.6 mg/dL (8.5-10.1); Chloride 106 mmol/L (98-107); Cholesterol 129 mg/dL (200); Creatinine, Serum 0.99 mg/dL (0.55-1.02); EST Glomerular Filtration Rate 59 mL/min (>60); Est Glom Filt Rate - Afr Amer 71 mL/min (>60); Globulin 3.9 g/dL (2.2-4.2); Glucose 157 mg/dL (74-106); High Density Lipoprotein 28 mg/dL; Potassium 4.2 mmol/L (3.5-5.1); Protein, Total 7.7 g/dL (6.4-8.2); Sodium Level 137 mmol/L (136-145); Thyroid Stim Hormone (TSH) 0.85 uIU/mL (0.358-3.74); Triglycerides 157 mg/dL; Very Low Density Lipoprotein 31 mg/dL (5-40)
[2022-03-16 18:34] LABS: White Blood Cells 10-25 SEEN /hpf (0-5)
[2022-03-16 18:35] LABS: Bacteria 4+ /hpf (None Seen); Red Blood Cells-Urine 0-5 SEEN /hpf (0-5); Squamous Epithelial Cells - UA 10-25 SEEN /hpf (5-10)
[2022-03-16 18:36] LABS: Microalbumin,Random Urine 33.6 mg/L (NO RANGE EST.); Microalbumin:Creatinine Ratio 15.1 mg/g CRE (<30 mg/g CRE); Mucous, Urine 2+ /hpf (<or=2+)
== END | disposition home or self-care (01) ==
LOC: MFPLAB 14:12
PROVIDERS: PCP Family Medicine; Referring Provider Family Medicine; Visit Provider Family Medicine
DX: I10 Essential (primary) hypertension (principal); E11.9 Type 2 diabetes mellitus without complications
CPT/HCPCS: 36415; 80053; 80061; 81001; 82043; 82570; 83036; 84443; 85025

== ENCOUNTER 2022-04-10 05:56 | Day surgery (SDC) | payer MEDICARE, SELFPAY ==
[2022-04-04 12:24] LABS: Absolute Lymphocyte Count 1.95 X10^3/uL (0.83-4.51); Absolute Neutrophil Count 4.7 X10^3/uL (2.0-7.7); Basophil# 0.09 X10^3/uL; Basophil% 1.2 % (0-1); Eosinophil# 0.38 X10^3/uL; Eosinophils% 4.9 % (0-5); Hematocrit 40.2 % (37-47); Hemoglobin 13.4 g/dL (12.0-15.0); Lymphocyte # 1.95 X10^3/ul (0.83-4.51); Mean Corp Hgb Conc 33.3 g/dL (32-36); Mean Corpuscular Hgb 30.5 pg (27.0-32.0); Mean Corpuscular Volume 91.6 fL (81-99); Mean Platelet Vol. 10.1 fl (6.2-12.0); Monocyte# 0.66 X10^3/uL; Monocyte% 8.5 % (0-10); NRBC Flagged by Analyzer 0 % (0-5); Neutrophil # 4.69 X10^3/uL (2.7-7.7); Neutrophil % 60.1 % (47-70); Platelet Count 268 K/mm3 (150-450); RBC Distribution Width CV 12.9 % (11.6-14.6); Red Blood Count 4.39 M/mm3 (4.2-5.4); White Blood Count 7.8 K/mm3 (4.4-11.0)
[2022-04-04 12:39] LABS: International Normalized Ratio 1.1; Prothrombin Time (Protime)PT. 13.9 SECONDS (11.7-14.9)
[2022-04-04 12:40] LABS: Partial Thromboplast Time 28.7 Seconds (24.1-36.2)
[2022-04-04 12:57] LABS: Anion Gap 7 (5-15); BUN 15 mg/dL (7-18); BUN/Creat Ratio 16.3 RATIO (10-20); Calcium,Total 9.5 mg/dL (8.5-10.1); Chloride 103 mmol/L (98-107); Creatinine, Serum 0.92 mg/dL (0.55-1.02); EST Glomerular Filtration Rate 64 mL/min (>60); Est Glom Filt Rate - Afr Amer 78 mL/min (>60); Glucose 149 mg/dL (74-106); Magnesium 2.2 mg/dL (1.6-2.6); Potassium 4.1 mmol/L (3.5-5.1); Sodium Level 136 mmol/L (136-145)
[2022-04-05 17:44] LABS: Fructosamine 254 umol/L (0-285)
[2022-04-10] VITALS (22 sets, daily range): BP systolic 70–158; BP diastolic 49–91; PULSE 52–77; RESP 14–18; TEMP 36.1–36.6; O2SAT 4–100; BMI 36.5
--- NOTE | 2022-04-10 | HIP_PTH ---
PATIENT: BARBARA CHOWDARY LOC: [facility] – [place] U#:[id number] AGE/SX: 71/F ROOM: RE04/10/[address]: Dr. Kyler Kent DO : 1950 BED: DIS: 04/10/2022 SPEC #: [id number] RECD: 04/10/22 13:33 STATUS: BEBE MANAS #: [id number] IONA: 04/10/22 00:[address]: Kyler Kent DEPT: SURGICAL PATHOLOGY RECD BY: Vito Beard ENTERED: 04/10/22 13:33 SP TYPE: TOTAL HIP OTHR DR: Dr. Gal Ballesteros MD Tissues: Hip, NOS Procedures: Decalcification bone/plaque Surgery Specimen Level IV HEADER OPERATION: ERAS, total hip replacement, robotic arm assist PRE-OP DIAGNOSIS: Degenerative joint disease of right hip TISSUE SUBMITTED: Right hip bone and tissue MICROSCOPIC DIAGNOSIS Right hip bone and tissue, total hip replacement/resection: Femoral head with degenerative osteoarthritic changes. SUBHASH:marley 04/13/2022 MICROSCOPIC DESCRIPTION Slides are reviewed. GROSS DESCRIPTION Received is one container labeled with the patient's name and designated bone and soft tissue hip, right. The specimen consists of a hicks femoral head with portion of femoral neck. The femoral head measures 4.5 x 4.5 x 4 cm and the femoral neck measures 0.7 cm in length. The articular surface displays prominent osteophyte formation and bone erosion. Also present in the container is a detached piece of bone measuring 4 x 2.5 x 0.5 cm. The soft tissue entirely consists of bone reamings measuring in aggregate 8 x 7 x 2 cm. Director Of Pharmacy sections are submitted in two cassettes after decalcification as follows: 1 ? bone reamings, 2 ? femoral head. / SUBHASH:marley 04/10/2022 TC:5 CPT: 37075, 09753
[2022-04-10] MEDS: Celecoxib 200 MG Capsule 400 MG PO (06:43)
[2022-04-10] MEDS: Gabapentin 600 MG Tablet PO (06:44)
[2022-04-10] MEDS: Acetaminophen 500 MG Tablet 1000 MG PO ×2 (06:46→15:27)
[2022-04-10] MEDS: Scopolamine 1mg/72hr Patch 1 PATCH TD (06:49)
[2022-04-10] MEDS: Lactated Ringers 1,000 ML 999 ML IV (06:50)
[2022-04-10] MEDS: Insulin Lispro 100 UNIT/ML INSULN.PEN SC (06:55)
[2022-04-10 07:06] LABS: Bedside Glucose 214 mg/dL (74-106)
[2022-04-10] MEDS: Lactated Ringers 1,000 ML 125 ML IV ×2 (07:19→14:46)
--- NOTE | 2022-04-10 07:24 | PCM.HP.BLA ---
History and Physical Date of Admission: 04/10/22 Date of Service:? 03/26/22 MR#: [id number] Acct: [id number] Name:BARBARA JEAN Rep #: [id number] : 1950 ? ? Provider: Dr. Kyler Kent, DO Age/Sex:? 71/F ? ? Location: [facility] Status: Signed Intake Intake Visit Reasons:?Discuss surgery on right hip Chief Complaint: Right hip pain Is patient in pain?: Yes Allergies acetaminophen [From Darvocet-N] Allergy (Verified 03/26/22 08:56) Hivespropoxyphene [From Darvocet-N] Allergy (Verified 03/26/22 08:56) Hiveslisinopril Adverse Reaction (Verified 03/26/22 08:56) cough Medications sertraline 25 mg tablet 25 mg PO DAILY 12/10/19 [History Confirmed 03/26/22] losartan 50 mg tablet 50 mg PO DAILY 02/26/20 [History Confirmed 03/26/22] cholecalciferol (vitamin D3) 1,000 unit PO DAILY 05/18/20 [History Confirmed 03/26/22] ascorbate calcium (vitamin C) 500 mg tablet 500 mg PO DAILY 10/27/21 [History Confirmed 03/26/22] ibuprofen 600 mg tablet 600 mg PO TID #60 tab 01/12/22 [Rx Confirmed 03/26/22] ibuprofen 600 mg tablet 600 mg PO TID #90 tab 01/26/22 [Rx Confirmed 03/26/22] PFSH Medical History? Anxiety Discharge from left nipple GERD (gastroesophageal reflux disease) HTN (hypertension) Intraductal papilloma of left breast Nipple discharge Osteoarthritis Surgical History? History of 3 sections History of section History of colonoscopy (~04/2015) History of esophagogastroduodenoscopy (EGD) (~04/2015) History of exploratory laparotomy History of right inguinal hernia repair S/P left breast biopsy S/P umbilical hernia repair, follow-up exam Family History? Mother HypertensionFather Colon cancerSister Hypertension Breast cancerBrother Hypertension Cancer ?? ? prostateAunt Breast cancer Social History? Smoking Status:? Never smoker HPI Discuss surgery on right hip Details: Parts of this documentation were recorded by a scribe, this documentation accurately reflects the service provided and the decisions made by me, Dr. Kyler Kent DO 03/26/22 [id number]. BARBARA CHOWDARY is a 71 year old F here today for right hip. Patient complains of groin pain and into her lateral hip. She states that she has increased pain with sitting to standing. Patient has increased pain with ambulation. Patient denies any numbness or tingling. Patient notes that she is taking ibuprofen twice daily for pain.? Ortho Exam General General: Yes no acute distress Neurologic: Yes alert Psychologic: Yes reasonable and appropriate Right Hip Skin: Yes CDI, No Ecchymosis, No soft tissue swelling and No Erythema HIP: Skin: No Ecchymosis, No soft tissue swelling and No Erythema Special Tests: No TTP Greater Troch Homans Sign: No HIP: 15 external rotation 3 internal rotation good strength no pain with resisted hip flexion good dorsi and plantar flexion Supplemental Info 01/26/2022 x-ray right hip: Joint space narrowing with subchondral cystic changes of the acetabulum Coding Level of Care Code Off vis,est,level 3 Diagnoses Degenerative joint disease of right hip? M16.11 Assessment and Plan Assessment and Plan (1) Degenerative joint disease of right hip: ?Status:?Acute ?Plan - Dr. Kyler Kent, DO: Spoke with the patient about the surgery procedure, risks and benefits. Patient will be on a blood thinner post op to prevent blood clots. She should ambulate. Spoke with her about the risks of damage to nerves causing a foot drop. She will need a walker initially. Patient will begin physical therapy following her surgery. Spoke with her about the risk of leg length discrepancy. Spoke with the patient about the anterior vs posterior approach, and the risks and benefits of each approach. She will have hip precautions post op, strictly for 6 weeks. Patient will be set up as same day procedure. Spoke with her about anesthesia risk or delirium post op. She will need to stop ibuprofen 7 days prior to surgery. Patient may take tylenol 1000mg four times daily if she is not having relief, she may add ibuprofen. Risks, benefits and alternatives of surgery reviewed including but not limited to bleeding, infection, nerve (specifically risk of foot drop or injury to sciatic nerve), artery and/or tissue damage, fracture, VTE, leg length discrepancy, dislocation, need for hip precautions, continued pain and expected post-operative course. Follow up at 2 weeks post op or sooner if pain, swelling, numbness or associated symptoms, or concerns develop.? All questions answered. Patient in agreement of plan. 03/26/22 1038 <Electronically signed by Kyler Kent DO> Date Kyler Kent DO Cosigner Signature: Date (if applicable) ? CC: ? ~I have re-examined the patient. There are no clinical changes since date of exam
[2022-04-10] MEDS: Cefazolin 2 GM in 0.9% Normal Saline 100 ML IV (08:21)
--- NOTE | 2022-04-10 10:56 | PCM.OPRPT ---
Report of Operation Date of Procedure: 04/10/22 Description of Surgical Findings:: Preoperative diagnosis: Right hip DJD Postoperative diagnosis: Same Procedure: CT-guided Makoplasty assisted right total hip arthroplasty Implants: [place] Accolade II stem size 3, 127 degree neck angle + 4 neck length 48 mm Trident II acetabular shell with 40 mm cancellous screw 32mm ceramic head Anesthesia: Spinal EBL: 200 cc Complications: None Condition: Stable to PACU Indication for procedure: This is a 71-year-old female who has had long-standing arthrosis of the hip who has failed conservative treatment and wished to undergo total hip arthroplasty. We did discuss operative versus nonoperative intervention including risks of bleeding, infection , nerve artery tissue damage, need for further surgery, fracture, leg length discrepancy dislocation blood clot and need for postoperative physical therapy and postoperative expectations. An informed consent was signed. Procedure: Patient was met in the preoperative holding area once again the operative extremity was identified by both patient and physician and was marked. Patient was met by anesthesia . Anesthesia was started. patient was then positioned in the lateral decubitus position on a well-padded pegboard with an axillary roll. All bony prominences were checked and padded. The patient was prepped and draped in the usual sterile fashion. A timeout was called to ensure the proper patient procedure and extremity were being contemplated. Anatomic landmarks were palpated and marked for a standard posterior lateral approach. Prior to this the ASIS was palpated and 3 fingerbreadths proximal to this 3 pins were placed at a 45 degree angle into the iliac crest with good purchase, stab incisions were made with a 15 blade into the skin prior to placement. The Makoplasty array was then secured. A 10 blade scalpel was used to make a posterior incision through the skin and subcutaneous tissue. retractors were used and electrocautery was used to maintain meticulous hemostasis and dissect full-thickness flaps until the gluteal fascia was reached. The gluteal fascia was incised in line with the gluteal fibers. The bursal tissue was then freed from the underside and a Charnley retractor was placed. The femoral trochanteric checkpoint was placed and leg length was assessed using the trochanteric checkpoint and an EKG lead that was placed on the knee prior to prepping the leg .the fat pad was then elevated off of the external rotators with electrocautery and the external rotators were dissected off of the greater trochanter including the piriformis and were tagged with #1 Ethibond for later repair. The joint capsule opened with posterior trapdoor technique. The hip was surgically dislocated. The measurement on the preoperative CT from the top of the lesser trochanter to the femoral neck cut was marked Hohmann was placed around the lesser trochanter. A neck cutting guide was used to francis the neck with a Bovie and an oscillating saw was used complete the femoral neck cut. The femoral head was then removed and sized. We then turned our attention to the acetabulum. A Bovie was used to make a perforation in the anterior joint capsule and a Hall retractor was placed this was repeated in the 6 o'clock position and a wide adwoa was placed there. With a long handled knife the labral and pulvinar tissue were removed. We then registered the acetabulum with the pointing array and confirmed our landmarks. Once the socket was thoroughly prepared and labral tissue and pulvinar was removed we single reamed with the robotic arm. We then used the robotic arm to position the acetabular implant and impacted it into place under robotic guidance. We then proceeded to place a posterior superior screw by drilling first measuring and inserting the screw. We then inserted a trial liner. And turned our attention back to the femur at this point a femoral elevator was used. As well as a pointed wide Hohmann around the lesser trochanter and a Hohmann to help retract the gluteus medius. A box chisel was used to remove excess lateral neck followed by a canal finder and a lateralizing reamer. This was followed by sequential broaches. Attention was made of the version within the canal based on preoperative templating. Once the final broach was seated we then trialed reduced the hip it was determined that a 127 degree neck angle with a +4 neck length was the appropriate size. We then checked stability with shuck testing as well as flexion and internal rotation. then proceeded with hip extension and checked leg lengths at the knees and heels as well as with the trochanteric checkpoint and knee EKG lead. At this point trials were removed. A liner was inserted to the cup. The femoral stem was inserted. We re-trialed and then proceeded to impact the femoral head onto the Jasper taper. We then surgically reduce the hip check stability again and leg lengths and were satisfied. Betadine rinse was allowed to sit for 5 minutes while everyone changed their gloves. Thorough irrigation was performed. Followed by closure of the external rotators with #2 FiberWire followed by closure of gluteal fascia with #1 Ethibond. 0 Vicryl fat stitches and 2-0 Vicryl subcutaneous stitches and ivette in the skin. A pulls were placed in the pin sites over the iliac crest with Xeroform 4 x 4 and OpSite. dressing was applied to incisional area with Mepilex Ag and an abduction pillow was placed. Patient tolerated the procedure well there was no intraoperative complications all counts were correct and the patient was brought back to the PACU in stable condition
--- NOTE | 2022-04-10 10:58 | DCINST_ITS ---
Discharge Instructions Dressing / Incision Call your doctor if you observe: Shortness of breath and Chest pain Additional Dressing/Incision Instructions:: Do not shower 72hrs. Begin daily showering warm water antibacterial soap postop day #3( 72hrs Post-operatively) and then daily. Leave the dressing on for 72 hours postoperatively then may remove prior to first shower and change dressing daily after this until no drainage for 2 consecutive days then may leave open to air. Follow hip precautions that were reviewed in hospital. Wear compression stockings, may remove at night. Start physical therapy as directed in hospital. Follow prescriptions instructions do not take any other pain medication or differ dosing without consulting your physician. Do not take oral NSAIDs until blood thinner has been completed , then may begin the day after completion if needed . Call Dr. Kent's office with any concerns. Follow Up Care Please Follow Up With: Kyler Kent DO When: 2 weeks Test Results: Test results from this visit will be discussed in further detail at your follow- up appointment, if applicable. Discharge Plan Admission Primary Reason for Your Visit: Right total hip arthroplasty Attending Provider: Kyler Kent Primary Care Provider: Gal Ballesteros Discharge Orders/Prescriptions Prescriptions: New cephalexin [cephalexin] 500 MG capsule 1,000 mg PO Q8 Qty: 4 0RF Rx Instructions: take 2 tabs at 9:00 pm and 2 tabs after 5 am when you wake up oxycodone 5 mg tablet 5 - 10 mg PO Q4H PRN (Reason: pain) 7 Days Qty: 60 0RF Eliquis 2.5 mg tablet 2.5 mg PO BID Qty: 42 0RF Rx Instructions: Begin morning after surgery, do not take NSAIDs while on this medicine Continued sertraline 25 mg tablet 25 mg PO QHS losartan 50 mg tablet 50 mg PO DAILY cholecalciferol (vitamin D3) 1,000 UNIT tablet 5,000 unit PO DAILY calcium 600 mg Capsule 600 mg PO MOWEFR Vitamin B-12 50 mcg Tablet 50 mcg PO QODAY Changed acetaminophen 500 mg Tablet 1,000 mg PO Q6H PRN (Reason: Pain) Qty: 100 0RF Referrals / Follow Up: Gal Ballesteros MD [Primary Care Provider] - Disposition Disposition (needs filled in before D/C Order can be placed): Home, Self Care
--- NOTE | 2022-04-10 11:00 | RAD_ITS ---
STUDY: X-RAY - PELVIS AND RIGHT HIP REASON FOR EXAM: Female, 71 years old. Postop TECHNIQUE: 2 views of the pelvis and hip. COMPARISON: 01/26/2022 FINDINGS: Interval total hip arthroplasty in anatomic alignment with postsurgical soft tissue changes. RAD/Hip Min 2 Views (Portable) IMPRESSION: Post operative right hip, no complications detected. Electronically Signed: Antoinette Munoz MD at 6:10 EDT Reading Location ID and State: , Service support ,
[2022-04-10 11:06] LABS: Bedside Glucose 124 mg/dL (74-106)
--- NOTE | 2022-04-10 12:23 | SUR.PHASEI ---
VERIFIED THAT DECADRON WAS NOT GIVEN IN OR, PER OR TEAM IT WAS NOT GIVEN, PER DR. MURRAY TBasim. IT DOES NOT NEED TO BE GIVEN AT THIS TIME. WILL CHART AGAINST IN THE EMAR.
[2022-04-10] MEDS: Cefazolin 1 GM/50 ML BAG IV (14:45)
[2022-04-10] MEDS: oxyCODONE 5 MG Tablet PO (16:25)
== END 2022-04-10 17:26 | disposition home or self-care (01) ==
LOC: SDC 06:00 → AC 06:01
PROVIDERS: PCP Family Medicine; Referring Provider Orthopaedic Surgery; Visit Provider Orthopaedic Surgery
PROC: 8E0Y0CZ Robotic Assisted Procedure of Lower Extremity, Open Approach (ICD-10-PCS; CPT 27130; principal; 2022-04-10 07:45)
DX: M16.11 Unilateral primary osteoarthritis, right hip (principal); E11.9 Type 2 diabetes mellitus without complications; I10 Essential (primary) hypertension; K21.9 Gastro-esophageal reflux disease without esophagitis; Z79.01 Long term (current) use of anticoagulants; Z79.899 Other long term (current) drug therapy
CPT/HCPCS: 27130; 01214; 36415; 73502; 80048; 82962; 82985; 83735; 85025; 85610; 85730; 86850; 86900; 86901; 87081; 88305; 88311; 97162; C1776; J7120; J2405; J3475

== ENCOUNTER → 2022-05-15 | Outpatient (CLI) | payer MEDICARE, SELFPAY ==
[2022-05-15 10:26] LABS: Absolute Lymphocyte Count 1.22 X10^3/uL (0.83-4.51); Absolute Neutrophil Count 4.1 X10^3/uL (2.0-7.7); Basophil# 0.08 X10^3/uL; Basophil% 1.2 % (0-1); Eosinophil# 0.47 X10^3/uL; Eosinophils% 7.1 % (0-5); Hematocrit 39.1 % (37-47); Hemoglobin 12.7 g/dL (12.0-15.0); Lymphocyte # 1.22 X10^3/ul (0.83-4.51); Lymphocyte % 18.5 % (19-41); Mean Corp Hgb Conc 32.5 g/dL (32-36); Mean Corpuscular Hgb 30.2 pg (27.0-32.0); Mean Corpuscular Volume 92.9 fL (81-99); Mean Platelet Vol. 10.3 fl (6.2-12.0); Monocyte# 0.65 X10^3/uL; Monocyte% 9.8 % (0-10); NRBC Flagged by Analyzer 0 % (0-5); Neutrophil # 4.14 X10^3/uL (2.7-7.7); Neutrophil % 62.8 % (47-70); Platelet Count 266 K/mm3 (150-450); RBC Distribution Width CV 13.1 % (11.6-14.6); RBC Distribution Width SD 44.7 fl (35.1-43.9); Red Blood Count 4.21 M/mm3 (4.2-5.4); White Blood Count 6.6 K/mm3 (4.4-11.0)
[2022-05-15 10:40] LABS: Hemoglobin A1c 6.5 % (3.8-5.6)
[2022-05-15 10:44] LABS: Vitamin D,25 Hydroxy 53.5 ng/mL
[2022-05-15 11:08] LABS: ALB/GLOB Ratio 0.9 RATIO (0.9-2.4); AST(SGOT) 13 U/L (15-37); Alanine Aminotransfer ALT/SGPT 21 U/L (13-56); Albumin, Serum 3.5 g/dL (3.2-5.0); Alkaline Phosphatase 67 U/L (45-117); Anion Gap 8 (5-15); BUN 12 mg/dL (7-18); BUN/Creat Ratio 15.3 RATIO (10-20); Calcium,Total 9.5 mg/dL (8.5-10.1); Chloride 107 mmol/L (98-107); Cholesterol 147 mg/dL (200); Creatinine, Serum 0.78 mg/dL (0.55-1.02); EST Glomerular Filtration Rate 77 mL/min (>60); Est Glom Filt Rate - Afr Amer 93 mL/min (>60); Globulin 3.9 g/dL (2.2-4.2); Glucose 148 mg/dL (74-106); High Density Lipoprotein 30 mg/dL; Potassium 4.3 mmol/L (3.5-5.1); Protein, Total 7.4 g/dL (6.4-8.2); Sodium Level 138 mmol/L (136-145); Triglycerides 144 mg/dL; Very Low Density Lipoprotein 29 mg/dL (5-40)
== END | disposition home or self-care (01) ==
LOC: MFPLAB 08:10
PROVIDERS: PCP Family Medicine; Referring Provider Family Medicine; Visit Provider Family Medicine
DX: E11.9 Type 2 diabetes mellitus without complications (principal); I10 Essential (primary) hypertension; M85.80 Other specified disorders of bone density and structure, unspecified site
CPT/HCPCS: 36415; 80053; 80061; 82306; 83036; 85025

== ENCOUNTER 2022-06-07 07:57 | Day surgery (SDC) | payer MEDICARE, SELFPAY ==
--- NOTE | 2022-06-07 | EMB_PTH ---
PATIENT: BARBARA CHOWDARY [place] [facility] [id number] AGE/SX: 71/F ROOM: RE06/07/[address]: Dr. Yudelka Delaney DO : 1950 BED: DIS: 06/07/2022 SPEC #: [id number] RECD: 06/07/22 12:50 STATUS: BEBE [place] #: [id number] IONA: 06/07/22 00:[address]: Yudelka Delaney DEPT: SURGICAL PATHOLOGY RECD BY: Vito Beard ENTERED: 06/07/22 12:50 SP TYPE: ENDOM BX/C JUMANA DR: Odalis Castano DO Tissues: Endometrium, NOS Procedures: Surgery Specimen Level IV HEADER OPERATION: Hysteroscopy, dilation and curettage PRE-OP DIAGNOSIS: Postmenopausal bleeding TISSUE SUBMITTED: Endometrial curettings MICROSCOPIC DIAGNOSIS Endometrial curettings: Mildly disordered proliferative endometrium. SJ 06/08/2022 COMMENT Case has been reviewed in consultation with Dr. Richardson who concurs with the above diagnosis. IDC:AM MICROSCOPIC DESCRIPTION Slides are reviewed. GROSS DESCRIPTION Received in formalin is one container labeled with the patient name and designated endometrial curettings. The specimen consists of multiple elongated and irregular fragments of hemorrhagic soft tissue measuring in aggregate 3 x 2.5 x 0.3 cm. The specimen is totally submitted in one cassette. / SJ:[place] 06/07/22 TC:5 CPT:53798
--- NOTE | 2022-06-07 06:42 | PCM.HP.BLA ---
History and Physical Date of Admission: 06/07/22 HPI: Date of Surgery:06/07/22. Presents for hysteroscopy, dilation and curettage for post menopausal bleeding. ROS: Const: Denies fatigue, fever, hot flashes, insomnia, weight gain and weight loss. CV: Denies irregular heartbeat, pain and shortness of breath. Resp: Denies difficulty breathing, cough and shortness of breath. : Denies abnormal bleeding, bloating, decreased interest in sex and pruritus. Lochia: Patient denies any discharge or clotting. Denies dysuria, frequency, hematuria, nocturia, urgency and urinary leakage. Neuro: Denies dizziness, fainting and seizures. Reynaldo/Lymph: Denies easy bleeding and excessive bleeding. Allergy/Immuno: Denies new allergies. Meds Prior to Visit: Calcium 500 +D 500-400 MG-Unit Ibuprofen 200 200 mg as needed Losartan Potassium 50 mg 1 tab by mouth every day Multi Vitamin every day Vitamin D3 Complete tab by mouth every day Allergies: Lisinopril, Darvon PMH: 1. Hypertension : (4).Parity: Full term (4). Self Care: Health Maintenance: Pap Smear (Contraceptive Methods) Menopausal History:Age of Menopause: 56. Surgical Hx: Inguinal Hernia Repair - (1950) Exploratory Laparotomy - (1975) ovarian cyst Section - 1976, 1979, 1981, 1985 Excision Of Breast Mass - (2019) Umbilical Hernia Repair - (2019) Hip Replacement - (2021) Anesthesia Complications: None. Reviewed and updated. FH: . (Illness) Father: Colon Cancer - dx age 75. Mother: Hypertension. Brother 1: Lymphoma - dx age 76. Brother 2: Kidney Cancer - dx age 69. Sister 1: Breast Cancer - dx age 65. Reviewed and updated. SH: Personal Habits:Tobacco Use: Patient has never smoked.Alcohol: Denies alcohol use.Drug Use: Denies Drug Use. BP: 140/80 Ht: 62.5 5'2.50 Wt: 206lb Wt Prior: 25lb 0oz as of 04/03/22 Wt Dif: +181lb BMI: 37.1 Exam: GEN: no acute distress HEENT: NC/AT Resp: Respiration rate is normal. Inspection of chest reveals AP is unremarkable and no chest wall deformity. CV: Rate is regular. Rhythm is regular. Neuro: CN 2-12 grossly intact, no focal deficits Assessment/Plan: Planned for hysteroscopy, dilation and curettage for post menopausal bleeding. Pt had endometrial biopsy in October 2021, within normal limits, however has had spotting since that time. Proceed with D&C for persistent post menopausal bleeding. All risks/benefits/alternatives discussed. Risks include, but are not limited to: risk of bleeding to the point of transfusion, infection, injury to surrounding tissue (bowel/bladder/major abdominal vessels/uterine perforation), VTE, ICU admission. Pt aware and consented. All questions answered.
[2022-06-07 08:21] VITALS: BP 136/78; PULSE 96; RESP 16; TEMP 36.4; O2SAT 99; BMI 35.9
[2022-06-07] MEDS: Lactated Ringers 1,000 ML 125 ML IV (08:24)
--- NOTE | 2022-06-07 09:58 | OP.PCM_ITS ---
Report of Operation Date of Procedure: 06/07/22 Pre-Operative Diagnosis: Postmenopausal bleeding Post-Operative Diagnosis: Postmenopausal bleeding Surgery/Procedure Performed:: Hysteroscopy, dilation and curettage Description of Surgical Findings:: Normal-appearing external genitalia. No uterine descensus. Cervix flush with apex of vagina. Thickened endometrial lining on hysteroscopy. Type of Anesthesia: MAC Specimen's removed: Endometrial curettings Estimated Blood Loss (mL): 5 cc Fluids Replaced: 700cc Description of Procedure: Indication/risk/benefit: 71-year-old female with postmenopausal bleeding plan for hysteroscopy, dilation curettage endometrial ablation. All risk, benefits a nd alternatives were discussed with patient. Risk include but are not limited to: Risk bleeding twin transfusion, infection, injury to surrounding tissue including bowel/bladder/uterine perforation, VTE, ICU admission. Patient aware and consented. Procedure: Patient taken to the operating room, MAC anesthesia induced. Patient placed in the dorsal lithotomy position and prepped and draped in usual sterile fashion. Speculum placed in posterior vagina and Damon retractor used in attempt to visualize cervix. Unable to visualize cervix. Retractors removed. Damon retractor placed posteriorly and right angle retractor placed anteriorly. Unable to visualize cervix. Able to palpate cervix on exam. Attempted to grasp with Allis clamp made. Unable to. Damon retractor placed in posterior vagina and Newton retractor used to visualize cervix. Cervix grasped laterally with Allis clamp. Then grasped anteriorly with single-tooth tenaculum. Attempt to dilate cervix. Tenaculum slipped off cervix. Removed retractors. Bladder drained 30 cc approximate clear urine. Speculum placed. Cervix visualized and grasped with single-tooth tenaculum. Cervical os dilated. Hysteroscope placed through cervical canal. Findings above. Curettage completed in a 360 degree manner. No active bleeding from cervix noted. Single-tooth tenaculum removed. Hemostatic. Speculum removed. Vaginal apex and cervix visualized using Damon retractor and Cayden again, hemostatic. Bladder drained an additional 20 cc clear urine. At the end of the procedure all needle, lap, sponge counts correct. Urine output: 50 cc total clear urine Complications none
--- NOTE | 2022-06-07 10:42 | DCINST_ITS ---
Discharge Instructions Diet Discharge Diet: No restrictions Activity Discharge Activity: Return to Normal Activity and May Shower May resume sexual activity in: 2 weeks Weight Bearing Status: Weight bearing as tolerated Lifting Restrictions: None Dressing / Incision Call your doctor if you observe: Fever of 101 or Higher, Change in Color, Inability to urinate, Using more than 1 pad per hour, Shortness of breath, Dizziness, Swelling in the ankles, Chest pain and Calf discomfort Follow Up Care Please Follow Up With: Yudelka Delaney DO When: 1-2 week postoperative visit Test Results: Test results from this visit will be discussed in further detail at your follow- up appointment, if applicable. Discharge Plan Admission Primary Reason for Your Visit: D&C Attending Provider: Yudelka Delaney Primary Care Provider: Odalis Castano Discharge Orders/Prescriptions Prescriptions: No Action losartan 50 mg tablet 50 mg PO DAILY cholecalciferol (vitamin D3) 1,000 UNIT tablet 5,000 unit PO DAILY calcium 600 mg Capsule 500 mg PO DAILY acetaminophen 500 mg Tablet 1,000 mg PO Q6H PRN (Reason: Pain) Qty: 100 0RF multivitamin Tablet 1 tab PO DAILY ibuprofen 600 mg tablet 600 mg PO PRN PRN (Reason: Pain) Referrals / Follow Up: Odalis Castano DO [Primary Care Provider] - Disposition Disposition (needs filled in before D/C Order can be placed): Home, Self Care
[2022-06-07 10:47] VITALS: BP 136/78; BP 146/124; PULSE 82; RESP 16; TEMP 36.2; O2SAT 97
[2022-06-07 10:50] VITALS: BP 108/80; BP 136/78; PULSE 76; RESP 16; O2SAT 96
[2022-06-07 10:55] VITALS: BP 114/69; BP 136/78; PULSE 76; RESP 16; O2SAT 97
[2022-06-07 11:00] VITALS: BP 124/87; BP 136/78; PULSE 74; RESP 16; TEMP 36.3; O2SAT 96
[2022-06-07] MEDS: Ibuprofen 600 MG Tablet PO (11:42)
[2022-06-07 11:59] VITALS: BP 136/78; BP 150/83; PULSE 62; RESP 16; TEMP 36; O2SAT 97
== END 2022-06-07 12:01 | disposition home or self-care (01) ==
LOC: SDC 07:58 → AC 07:59
PROVIDERS: PCP Family Medicine; Referring Provider Family Medicine; Visit Provider Student in an Organized Health Care Education/Training Program
PROC: 0UDB8ZZ Extraction of Endometrium, Via Natural or Artificial Opening Endoscopic (ICD-10-PCS; CPT 58558; principal; 2022-06-07 09:20)
DX: N95.0 Postmenopausal bleeding (principal); E11.9 Type 2 diabetes mellitus without complications; I10 Essential (primary) hypertension; M16.11 Unilateral primary osteoarthritis, right hip; Z78.0 Asymptomatic menopausal state; Z79.899 Other long term (current) drug therapy
CPT/HCPCS: 58558; 00952; 36415; 86850; 86900; 86901; 88305; J7120; J2405

== ENCOUNTER → 2022-06-29 | Outpatient (CLI) | payer MEDICARE, SELFPAY ==
--- NOTE | 2022-06-29 08:08 | BI_ITS ---
MAMMOGRAPHY - BILATERAL SCREENING REASON FOR EXAM: Female, 71 years old. Routine annual screening examination. PERTINENT HISTORY: Daughter with breast cancer. Sister with breast cancer. Aunt with breast cancer. TECHNIQUE: Digital bilateral breast lucrecia (3D mammographic acquisition) in the CC and MLO projections. 2-D mediolateral oblique (MLO) and craniocaudad (CC) views of both breasts were obtained. CAD: Full Field Digital Mammography with Computer Added Detection was performed. COMPARISON: Comparison is made with prior examination dated 06/14/2021. FINDINGS: Breast Composition: There are scattered areas of fibroglandular density. There are no dominant masses or suspicious calcifications. Stable small benign-appearing bilateral axillary lymph nodes. No other significant abnormalities are identified. There has been no significant change since the prior study. BI/SCRN MAMM (CAD)W/LUCRECIA BILAT IMPRESSION: Stable bilateral screening mammogram. Yearly follow-up mammogram recommended. (A) ASSESSMENT CATEGORY: BIRADS Category 2: Benign. A letter regarding these results will be sent to the patient by the facility within 30 days. Approximately 10% of breast cancers are not detected by mammography. A normal mammogram should not delay biopsy of a clinically suspicious abnormality. [id number] Electronically Signed: Pete Grajeda MD at 9:03 EDT ,
== END | disposition home or self-care (01) ==
LOC: OPBI 08:06
PROVIDERS: PCP Family Medicine; Visit Provider Student in an Organized Health Care Education/Training Program
DX: Z12.31 Encounter for screening mammogram for malignant neoplasm of breast (principal); Z80.3 Family history of malignant neoplasm of breast; Z48.816 Encounter for surgical aftercare following surgery on the genitourinary system
CPT/HCPCS: 77063; 77067

== ENCOUNTER → 2022-11-13 | Outpatient (CLI) | payer MEDICARE, SELFPAY ==
[2022-11-13 12:30] LABS: Basophil# 0.09 X10^3/uL; Basophil% 1.2 % (0-1); Eosinophil# 0.35 X10^3/uL; Eosinophils% 4.5 % (0-5); Hemoglobin 13.9 g/dL (12.0-15.0); Mean Corp Hgb Conc 33.1 g/dL (32-36); Mean Corpuscular Hgb 30.2 pg (27.0-32.0); Mean Corpuscular Volume 91.3 fL (81-99); Mean Platelet Vol. 10.4 fl (6.2-12.0); Monocyte# 0.53 X10^3/uL; Monocyte% 6.9 % (0-10); NRBC Flagged by Analyzer 0 % (0-5); Neutrophil # 5.03 X10^3/uL (2.7-7.7); Platelet Count 275 K/mm3 (150-450); RBC Distribution Width CV 12.7 % (11.6-14.6); RBC Distribution Width SD 42.2 fl (35.1-43.9); White Blood Count 7.7 K/mm3 (4.4-11.0)
[2022-11-13 13:15] LABS: AST(SGOT) 18 U/L (15-37); Alanine Aminotransfer ALT/SGPT 33 U/L (13-56); Albumin, Serum 3.8 g/dL (3.2-5.0); Alkaline Phosphatase 53 U/L (45-117); Anion Gap 11 (5-15); BUN 13 mg/dL (7-18); Calcium,Total 9.4 mg/dL (8.5-10.1); Chloride 102 mmol/L (98-107); Cholesterol 158 mg/dL (200); Creatinine, Serum 0.87 mg/dL (0.55-1.02); EST Glomerular Filtration Rate 69 mL/min (>60); Est Glom Filt Rate - Afr Amer 83 mL/min (>60); Globulin 3.8 g/dL (2.2-4.2); Glucose 170 mg/dL (74-106); High Density Lipoprotein 34 mg/dL; Potassium 4.3 mmol/L (3.5-5.1); Protein, Total 7.6 g/dL (6.4-8.2); Sodium Level 137 mmol/L (136-145); Triglycerides 143 mg/dL; Very Low Density Lipoprotein 29 mg/dL (5-40)
[2022-11-13 13:24] LABS: Hemoglobin A1c 8.5 % (3.8-5.6)
== END | disposition home or self-care (01) ==
LOC: MFPLAB 09:51
PROVIDERS: PCP Family Medicine; Referring Provider Family Medicine; Visit Provider Family Medicine
DX: I10 Essential (primary) hypertension (principal); E11.9 Type 2 diabetes mellitus without complications
CPT/HCPCS: 36415; 80053; 80061; 82043; 83036; 85025

== ENCOUNTER → 2022-11-15 | Outpatient (CLI) | payer MEDICARE, SELFPAY ==
[2022-11-15 18:08] LABS: Microalbumin,Random Urine 5.7 mg/L (NO RANGE EST.); Microalbumin:Creatinine Ratio 6.2 mg/g CRE (<30 mg/g CRE)
== END | disposition home or self-care (01) ==
LOC: LABSPEC 14:10
PROVIDERS: PCP Family Medicine; Referring Provider Family Medicine; Visit Provider Family Medicine
DX: E11.9 Type 2 diabetes mellitus without complications (principal)
CPT/HCPCS: 82043; 82570

== ENCOUNTER → 2023-01-11 | Outpatient (CLI) | payer MEDICARE, SELFPAY ==
--- NOTE | 2023-01-11 13:57 | RAD_ITS ---
STUDY: X-RAY CHEST REASON FOR EXAM: Female, 72 years old. Chronic cough for years. History of hiatal hernia. TECHNIQUE: PA and lateral views of the chest. COMPARISON: November 27, 2019 FINDINGS: The lungs are clear and expanded. There is no demonstrated pleural abnormality. Normal size heart. Normal mediastinum and silverio. Normal visualized pulmonary arteries. Normal visualized aortic arch and descending thoracic aorta. Mild degenerative changes of the thoracic spine. There is degenerative osteoarthritis of the bilateral shoulders. There is no demonstrated abnormality of the visualized soft tissue structures of the upper abdomen. RAD/Chest PA and Lateral IMPRESSION: No acute cardiopulmonary disease or major interval change. Electronically Signed: David Last DO at 17:25 EDT ,
== END | disposition home or self-care (01) ==
LOC: MTRAD 13:55
PROVIDERS: PCP Family Medicine; Referring Provider Family Medicine; Visit Provider Family Medicine
DX: R05.9 Cough, unspecified (principal)
CPT/HCPCS: 71046

== ENCOUNTER → 2023-01-24 | Outpatient (CLI) | payer MEDICARE, SELFPAY ==
--- NOTE | 2023-01-24 12:36 | PFT ---
INTRODUCTION: The patient is a 72-year-old female that presents for pulmonary function studies secondary to a diagnosis of cough. Respiratory therapy reported good patient effort. Bronchodilators were used during testing. INTERPRETATION: Forced expiration spirometry demonstrates no evidence of a large airways obstructive ventilatory defect. There was no significant response to aerosolized bronchodilators. Spirograms are of good quality and plateau normally. Body plethysmography was performed and demonstrated an elevated TLC and RV, indicative of underlying hyperinflation and air trapping. Diffusing capacity by single breath CO was within normal limits. IMPRESSION: Stigmata of small airways disease with associated hyperinflation and air trapping.
== END | disposition home or self-care (01) ==
PROVIDERS: PCP Family Medicine; Referring Provider Family Medicine; Visit Provider Family Medicine
DX: R05.9 Cough, unspecified (principal)
CPT/HCPCS: 94060; 94726; 94729

== ENCOUNTER → 2023-01-31 | Outpatient (CLI) | payer MEDICARE, SELFPAY ==
[2023-01-31 12:22] LABS: Absolute Lymphocyte Count 1.93 X10^3/uL (0.83-4.51); Absolute Neutrophil Count 4.9 X10^3/uL (2.0-7.7); Basophil# 0.07 X10^3/uL; Basophil% 0.9 % (0-1); Eosinophil# 0.34 X10^3/uL; Eosinophils% 4.4 % (0-5); Hematocrit 40.8 % (37-47); Hemoglobin 13.2 g/dL (12.0-15.0); Lymphocyte # 1.93 X10^3/ul (0.83-4.51); Lymphocyte % 24.9 % (19-41); Mean Corp Hgb Conc 32.4 g/dL (32-36); Mean Corpuscular Hgb 30.1 pg (27.0-32.0); Mean Corpuscular Volume 93.2 fL (81-99); Mean Platelet Vol. 10.8 fl (6.2-12.0); Monocyte# 0.43 X10^3/uL; Monocyte% 5.6 % (0-10); NRBC Flagged by Analyzer 0 % (0-5); Neutrophil # 4.93 X10^3/uL (2.7-7.7); Neutrophil % 63.7 % (47-70); Platelet Count 268 K/mm3 (150-450); RBC Distribution Width CV 12.9 % (11.6-14.6); RBC Distribution Width SD 44.2 fl (35.1-43.9); Red Blood Count 4.38 M/mm3 (4.2-5.4); White Blood Count 7.7 K/mm3 (4.4-11.0)
[2023-02-02 20:07] LABS: Alternaria tenuis <0.10 kU/L (Class 0); Ash, White 3.72 kU/L (Class III); Aspergillus fumigatus <0.10 kU/L (Class 0); Bermuda Grass 4.03 kU/L (Class IV); Birch 1.59 kU/L (Class III); Black Walnut 3.55 kU/L (Class III); Cat Hair / Dander,Stand <0.10 kU/L (Class 0); Cedar, Mountain 1.98 kU/L (Class III); Cladosporium herbarum <0.10 kU/L (Class 0); Cockroach, American 1.54 kU/L (Class III); Cottonwood 2.66 kU/L (Class III); D farinae Mite 0.31 kU/L (Class 0/I); D pteronyssinus 0.14 kU/L (Class 0/I); Dog Epithelia <0.10 kU/L (Class 0); Elm, American White 3.89 kU/L (Class III); Immunoglobulin E 136 IU/mL (6-495); Mulberry, White 1.82 kU/L (Class III); Oak, White 3.77 kU/L (Class III); Pecan 2.52 kU/L (Class III); Penicillium Notatum <0.10 kU/L (Class 0); Pigweed, Rough 3.18 kU/L (Class III); Ragweed, Short/Common 3.34 kU/L (Class III); Russian Thistle 3.66 kU/L (Class III); Sheep Sorrel 3.99 kU/L (Class IV); Sycamore, American 3.46 kU/L (Class III); Timothy Grass 3.93 kU/L (Class IV)
[2023-02-03 08:29] LABS: Mouse Urine <0.10 kU/L (Class 0)
[2023-02-03 11:07] LABS: Aspirgillus flavus Negative (Neg:<1:1); Aspirgillus fumigatus Negative (Neg:<1:1); Aspirgillus niger Negative (Neg:<1:1)
[2023-02-03 12:16] LABS: Immunoglobulin E 162 IU/mL (6-495)
== END | disposition home or self-care (01) ==
LOC: PSN 10:03
PROVIDERS: PCP Family Medicine; Referring Provider Internal Medicine Critical Care Medicine; Visit Provider Internal Medicine Critical Care Medicine
DX: R05.3 Chronic cough (principal); N64.52 Nipple discharge
CPT/HCPCS: 36415; 82785; 85025; 86003; 86606; 87798; C9803

== ENCOUNTER 2023-05-20 17:30 | Outpatient (RCR) | payer SELFPAY | END 2023-05-20 23:59 | LOC: NS 17:30 | PROVIDERS: PCP Family Medicine | DX: Z71.3 Dietary counseling and surveillance (principal); E11.9 Type 2 diabetes mellitus without complications ==

== ENCOUNTER → 2023-05-28 | Outpatient (CLI) | payer MEDICARE, SELFPAY ==
--- NOTE | 2023-05-28 07:02 | CT_ITS ---
STUDY: CT ABDOMEN AND PELVIS WITH CONTRAST - URINARY TRACT REASON FOR EXAM: Female, 72 years old. RUQ PAIN. PRIOR HERNIA REPAIR RADIATION DOSAGE (If Supplied By Facility): CTDIvol = ( 20.47 ) mGy, DLP = ( 2694.75 ) mGycm TECHNIQUE: Oral Read i-CAT and 100mL Isovue-300 was administered. Transaxial images were obtained from the dome of the diaphragm to the symphysis pubis in the arterial, nephrographic and excretory phases. Multiplanar coronal and sagittal images were reformatted. Individualized Dose Optimization Techniques Were Used For This CT. COMPARISON: No relevant prior comparison study available FINDINGS: The visualized lung bases are unremarkable. The visualized portions of the heart are within normal limits. Normal liver. There is a punctate high attenuation dependent focus within the gallbladder which may reflect a stone and/or sludge. Normal spleen. Normal pancreas. Normal bilateral adrenal glands. There is a small hiatal hernia. Normal small intestine. Normal colon. There is non-visualization of the appendix. There is diffuse atherosclerotic calcification of the abdominal aorta, without a demonstrated aneurysm. No retroperitoneal adenopathy. Normal right kidney. Normal left kidney. Normal urinary bladder. The uterus is right of midline. Normal abdominal wall. There is a right total hip arthroplasty in place creating beam hardening artifact and obscuring anatomic detail within the pelvis. There are degenerative changes of the visualized thoracic and lumbar spine. CT/Abdomen/Pelvis WITH Contrast IMPRESSION: Hiatal hernia. Atherosclerosis. Degenerative changes of the visualized thoracic and lumbar spine. Electronically Signed: Roberta Patrick MD at 8:59 EDT ,
[2023-05-28 07:27] LABS: CREATININE FINGERSTICK < 0.9 mg/dL (0.55-1.02); EGFR FINGERSTICK > 60.0000 mL/min (>60)
== END | disposition home or self-care (01) ==
LOC: CT 07:01
PROVIDERS: PCP Family Medicine; Referring Provider Family Medicine; Visit Provider Family Medicine
DX: R10.11 Right upper quadrant pain (principal)
CPT/HCPCS: 74177; Q9967

== ENCOUNTER → 2023-07-17 | Outpatient (CLI) | payer MEDICARE, SELFPAY ==
--- NOTE | 2023-07-17 09:19 | BI_ITS ---
MAMMOGRAPHY - BILATERAL SCREENING REASON FOR EXAM: Female, 72 years old. Routine annual screening examination. PERTINENT HISTORY: Daughter with breast cancer. Sister with breast cancer. Aunt with breast cancer. History of prior left excisional breast biopsy. TECHNIQUE: Digital bilateral breast lucrecia (3D mammographic acquisition) in the CC and MLO projections. 2-D mediolateral oblique (MLO) and craniocaudad (CC) views of both breasts were obtained. CAD: Full Field Digital Mammography with Computer Added Detection was performed. COMPARISON: Comparison is made with prior study of June 29, 2022 and June 14, 2021. FINDINGS: Breast Composition: There are scattered areas of fibroglandular density. There are no dominant masses or suspicious calcifications. Stable benign-appearing bilateral axillary lymph nodes. No other significant abnormalities are identified. There has been no significant change since the prior study. BI/SCRN MAMM (CAD)W/LUCRECIA BILAT IMPRESSION: Stable bilateral screening mammogram. Yearly follow-up mammogram recommended. (A) ASSESSMENT CATEGORY: BIRADS Category 2: Benign. A letter regarding these results will be sent to the patient by the facility within 30 days. Approximately 10% of breast cancers are not detected by mammography. A normal mammogram should not delay biopsy of a clinically suspicious abnormality. [id number] Electronically Signed: Pete Grajeda MD at 14:16 EDT ,
--- NOTE | 2023-07-17 09:51 | NM_ITS ---
Nuclear medicine HIDA scan Indication: Right upper quadrant pain. COMPARISON STUDIES : NM - None. CR - Not available for review at this time. CT - CT 05/28/2023 MR - Not available for review at this time. Technique: 5.7 mCi of technetium 99m labeled mebrofenin was injected intravenously followed by standard imaging. 1.8 mcg of CCK was injected intravenously for calculation of gallbladder ejection fraction. Findings: There is homogenous activity throughout the liver. Normal excretion of isotope into the proximal small bowel. Activity in the gallbladder is identified at 30 minutes. Gallbladder ejection fraction measures 28%. NM/Hepatobilliary Img w/Pharm Int IMPRESSION: Normal filling of the gallbladder without evidence of acute cholecystitis or biliary obstruction. A gallbladder ejection fraction calculated to be less than 35% following the administration of Cholecystokinin makes the probability of functional hepatobiliary disease (gallbladder and/or sphincter of Oddi dyskinesia) and/or organic hepatobiliary disease (chronic acalculous cholecystitis and/or cystic duct syndrome) to be high. (Marquis Quiñones et al, Journal of Nuclear Medicine 32:1695, 1991). Electronically Signed: Reji Partida MD ([place]) at 8:34 EDT ,
== END | disposition home or self-care (01) ==
LOC: NM 09:18
PROVIDERS: PCP Family Medicine; Referring Provider Family Medicine; Visit Provider Family Medicine
DX: Z12.31 Encounter for screening mammogram for malignant neoplasm of breast (principal); R10.11 Right upper quadrant pain; Z80.3 Family history of malignant neoplasm of breast
CPT/HCPCS: 77063; 77067; 78227; A9537; J2805

== ENCOUNTER → 2023-09-20 | Outpatient (CLI) | payer MEDICARE, SELFPAY ==
--- NOTE | 2023-09-20 11:14 | RAD_ITS ---
INDICATION: PAIN EXAMINATION/TECHNIQUE: X-RAY - LEFT XR Shoulder Min 2 Views COMPARISON: None. FINDINGS: SOFT TISSUES: Calcification superior to the humeral head. BONES/JOINTS: No fracture or dislocation. Mild degenerative changes of the acromioclavicular joint. No erosive changes. RAD/Shoulder min 2 Views IMPRESSION: 1. Mild degenerative changes. 2. No acute abnormality. 3. Small calcification superior to the humeral head which may represent calcific rotator cuff tendinopathy. Electronically Signed: Erik Drake DO at 0:44 EST ,
--- NOTE | 2023-09-20 11:14 | RAD_ITS ---
INDICATION: PAIN EXAMINATION/TECHNIQUE: X-RAY - RIGHT XR Shoulder Min 2 Views 4 VIEWS COMPARISON: FINDINGS: No acute fracture or dislocation. Focal calcification lateral to the greater tuberosity. Joint spaces are well-maintained. Normal alignment. Soft tissues are unremarkable. No radiopaque foreign body or soft tissue gas. RAD/Shoulder min 2 Views IMPRESSION: No acute findings. Calcification lateral to the greater tuberosity may represent calcific tendinosis in the appropriate clinical setting. Electronically Signed: Chelle Gonzalez MD at 23:52 EST Reading Location ID and State: [id number] / Tel , Service support ,
== END | disposition home or self-care (01) ==
LOC: MTRAD 11:13
PROVIDERS: PCP Family Medicine; Referring Provider Family Medicine; Visit Provider Family Medicine
DX: M25.511 Pain in right shoulder (principal); M25.512 Pain in left shoulder
CPT/HCPCS: 73030

== ENCOUNTER → 2023-10-03 | Outpatient (CLI) | payer MEDICARE, SELFPAY ==
[2023-10-03 17:28] LABS: Basophil% 1.2 % (0-1); Eosinophils% 4.7 % (0-5); Hematocrit 42.2 % (37-47); Hemoglobin 13.5 g/dL (12.0-15.0); Lymphocyte % 19.4 % (19-41); Mean Corpuscular Hgb 29.9 pg (27.0-32.0); Mean Corpuscular Volume 93.4 fL (81-99); Mean Platelet Vol. 10.5 fl (6.2-12.0); Monocyte% 7.3 % (0-10); Neutrophil % 66.9 % (47-70); Platelet Count 262 K/mm3 (150-450); RBC Distribution Width CV 12.8 % (11.6-14.6); RBC Distribution Width SD 43.8 fl (35.1-43.9); Red Blood Count 4.52 M/mm3 (4.2-5.4); White Blood Count 10.7 K/mm3 (4.4-11.0)
[2023-10-03 17:29] LABS: Absolute Lymphocyte Count 2.08 X10^3/uL (0.83-4.51); Absolute Neutrophil Count 7.2 X10^3/uL (2.0-7.7); Basophil# 0.13 X10^3/uL; Lymphocyte # 2.08 X10^3/ul (0.83-4.51); Monocyte# 0.78 X10^3/uL; NRBC Flagged by Analyzer 0 % (0-5); Neutrophil # 7.16 X10^3/uL (2.7-7.7)
[2023-10-03 17:45] LABS: Vitamin B12 522 pg/mL (211-911); Vitamin D,25 Hydroxy 60.8 ng/mL
[2023-10-03 17:54] LABS: ALB/GLOB Ratio 0.9 RATIO (0.9-2.4); AST(SGOT) 13 U/L (15-37); Alanine Aminotransfer ALT/SGPT 23 U/L (13-56); Albumin, Serum 3.7 g/dL (3.2-5.0); Alkaline Phosphatase 44 U/L (45-117); Anion Gap 8 (5-15); BUN 17 mg/dL (7-18); BUN/Creat Ratio 20.4 RATIO (10-20); Calcium,Total 9.2 mg/dL (8.5-10.1); Chloride 107 mmol/L (98-107); Cholesterol 125 mg/dL (200); Creatinine, Serum 0.84 mg/dL (0.55-1.02); EST Glomerular Filtration Rate 72 mL/min (>60); Est Glom Filt Rate - Afr Amer 87 mL/min (>60); Ferritin 161 ng/mL (8-252); Globulin 3.9 g/dL (2.2-4.2); Glucose 157 mg/dL (74-106); High Density Lipoprotein 28 mg/dL; Potassium 4.2 mmol/L (3.5-5.1); Protein, Total 7.6 g/dL (6.4-8.2); Sodium Level 139 mmol/L (136-145); Thyroid Stim Hormone (TSH) 0.92 uIU/mL (0.358-3.74); Triglycerides 229 mg/dL; Very Low Density Lipoprotein 46 mg/dL (5-40)
[2023-10-03 18:00] LABS: Microalbumin,Random Urine 6.8 mg/L (NO RANGE EST.); Microalbumin:Creatinine Ratio 9.8 mg/g CRE (<30 mg/g CRE)
== END | disposition home or self-care (01) ==
LOC: MFPLAB 15:12
PROVIDERS: PCP Family Medicine; Visit Provider Family Medicine
DX: E11.9 Type 2 diabetes mellitus without complications (principal); M85.80 Other specified disorders of bone density and structure, unspecified site; K21.9 Gastro-esophageal reflux disease without esophagitis; I10 Essential (primary) hypertension
CPT/HCPCS: 36415; 80053; 80061; 82043; 82306; 82570; 82607; 82728; 84443; 85025

== ENCOUNTER → 2024-09-07 | Outpatient (CLI) | payer MEDICARE, SELFPAY | END | disposition home or self-care (01) | PROVIDERS: PCP Family Medicine | DX: S89.90XA Unspecified injury of unspecified lower leg, initial encounter (principal) | CPT/HCPCS: 73564 ==

== ENCOUNTER → 2024-10-20 | Outpatient (CLI) | payer MEDICARE, SELFPAY ==
[2024-10-20 16:29] LABS: Absolute Neutrophil Count 6.6 X10^3/uL (2.0-7.7); Basophil# 0.11 X10^3/uL; Basophil% 1.1 % (0-1); Eosinophil# 0.52 X10^3/uL; Eosinophils% 5.1 % (0-5); Hematocrit 38.5 % (37-47); Hemoglobin 13.1 g/dL (12.0-15.0); Lymphocyte % 21.6 % (19-41); Mean Corpuscular Hgb 31.1 pg (27.0-32.0); Mean Corpuscular Volume 91.4 fL (81-99); Mean Platelet Vol. 10.3 fl (6.2-12.0); Monocyte# 0.76 X10^3/uL; Monocyte% 7.5 % (0-10); NRBC Flagged by Analyzer 0 % (0-5); Neutrophil # 6.55 X10^3/uL (2.7-7.7); Neutrophil % 64.3 % (47-70); Platelet Count 287 K/mm3 (150-450); Red Blood Count 4.21 M/mm3 (4.2-5.4); White Blood Count 10.2 K/mm3 (4.4-11.0)
[2024-10-20 16:55] LABS: Vitamin D,25 Hydroxy 43.3 ng/mL
[2024-10-20 16:59] LABS: AST(SGOT) 26 U/L (15-37); Alanine Aminotransfer ALT/SGPT 44 U/L (13-56); Albumin, Serum 3.8 g/dL (3.2-5.0); Alkaline Phosphatase 39 U/L (45-117); Anion Gap 8 (5-15); BUN 12 mg/dL (7-18); BUN/Creat Ratio 13.7 RATIO (10-20); Calcium,Total 9.6 mg/dL (8.5-10.1); Chloride 104 mmol/L (98-107); Cholesterol 141 mg/dL (200); Creatinine, Serum 0.88 mg/dL (0.55-1.02); EST Glomerular Filtration Rate 67 mL/min (>60); Est Glom Filt Rate - Afr Amer 81 mL/min (>60); Globulin 3.8 g/dL (2.2-4.2); Glucose 224 mg/dL (74-106); High Density Lipoprotein 38 mg/dL; Potassium 4.1 mmol/L (3.5-5.1); Protein, Total 7.6 g/dL (6.4-8.2); Sodium Level 137 mmol/L (136-145); Triglycerides 146 mg/dL; Very Low Density Lipoprotein 29 mg/dL (5-40)
[2024-10-20 17:14] LABS: Hemoglobin A1c 7.3 % (3.8-5.6)
== END | disposition home or self-care (01) ==
LOC: MFPLAB 15:49
PROVIDERS: PCP Family Medicine; Referring Provider Family Medicine; Visit Provider Family Medicine
DX: E11.9 Type 2 diabetes mellitus without complications (principal); M25.519 Pain in unspecified shoulder; M85.80 Other specified disorders of bone density and structure, unspecified site; Z13.220 Encounter for screening for lipoid disorders
CPT/HCPCS: 36415; 80053; 80061; 82306; 83036; 84443; 85025

== ENCOUNTER 2025-09-28 08:15 | Outpatient (CLI) | payer MEDICARE, SELFPAY ==
[2025-09-28 11:02] LABS: Hematocrit 40.1 % (37-47); Hemoglobin 13.3 g/dL (12.0-15.0); Immature Granulocytes Count 0.040 X10^3/uL (0.0-0.0); Mean Corp Hgb Conc 33.2 g/dL (32-36); Mean Corpuscular Volume 92.2 fL (81-99); Mean Platelet Vol. 10.5 fl (6.2-12.0); NRBC Flagged by Analyzer 0 % (0-5); Platelet Count 265 K/mm3 (150-450); RBC Distribution Width CV 12.8 % (11.6-14.6); RBC Distribution Width SD 43.4 fl (35.1-43.9); Red Blood Count 4.35 M/mm3 (4.2-5.4); White Blood Count 7.2 K/mm3 (4.4-11.0)
[2025-09-28 12:00] LABS: AST(SGOT) 18 U/L (<=31); Alanine Aminotransfer ALT/SGPT 27 U/L (<=34); Albumin, Serum 4.1 g/dL (3.4-4.8); Alkaline Phosphatase 43 U/L (35-104); Anion Gap 12 (5-15); BUN 16 mg/dL (4-19); BUN/Creat Ratio 22.0 RATIO (10-20); Calcium,Total 9.3 mg/dL (7.6-11.0); Carbon Dioxide 21.1 mmol/L (21.0-32.0); Chloride 105 mmol/L (98-108); Cholesterol 138 mg/dL (<=200); Globulin 3.0 g/dL (2.2-4.2); Glucose 224 mg/dL (70-99); Low Density Lipoprotein Calc. 92 mg/dL; Potassium 4.4 mmol/L (3.3-5.1); Triglycerides 80 mg/dL; Very Low Density Lipoprotein 16 mg/dL (5-40); Vitamin D,25 Hydroxy 36.7 ng/mL (30-100); cholesterol:hdl ratio screen 4.62
== END 2025-09-28 23:59 | disposition home or self-care (01) ==
LOC: LAB.FUTURE 08:16 → MFPLAB 08:16
PROVIDERS: PCP Family Medicine; Visit Provider Family Medicine
DX: E11.9 Type 2 diabetes mellitus without complications (principal); I10 Essential (primary) hypertension; M85.80 Other specified disorders of bone density and structure, unspecified site
CPT/HCPCS: 36415; 80053; 80061; 82306; 83036; 84443; 85025